=== PATIENT | male | born 1950 | race Caucasian/White ===

== ENCOUNTER 2018-03-28 07:58 | Emergency (ER) | payer OTHER ==
[2018-03-28 08:55] LABS: Protime INR 5.08
[2018-03-28] MEDS ORDERED: LEVALBUTEROL 1.25 MG/3 ML NEB ONE (08:55)
[2018-03-28 08:58] LABS: Absolute Lymphocytes (CBC) 0.5 K/uL (0.7-4.9); Absolute Monocytes 0.9 K/uL (0.1-1.3); Absolute Neutrophil 8.3 K/uL (1.8-8.0); Basophils % 0.2 % (0-1.3); Eosinophils % 1.4 % (0-4.4); Hematocrit 48.1 % (39.6-49.0); Lymphocytes % 5.2 % (15.3-44.8); MCH 30.6 pg (27.0-35.0); MCV 92.4 fL (80-100); MPV 9.8 fL (7.6-11.3); Monocytes % 8.8 % (3.3-12.3); RBC Red Blood Cell Count 5.21 M/uL (4.33-5.43)
[2018-03-28 08:59] LABS: ALT/SGPT 24 U/L (12-78); AST/SGOT 23 U/L (15-37); Albumin 3.7 g/dL (3.4-5.0); Alkaline Phosphatase 80 U/L (45-117); BUN Blood Urea Nitrogen 31 mg/dL (7-18); Bicarbonate 40 mmol/L (21-32); Bilirubin Direct 0.2 mg/dL (0-0.2); Bilirubin Total 0.6 mg/dL (0.2-1.0); Glucose Level 118 mg/dL (74-106); Magnesium 2.4 mg/dL (1.8-2.4); NT PRO-BNP 1635 pg/mL (<125); Potassium 3.8 mmol/L (3.5-5.1); Protein, Total 7.5 g/dL (6.4-8.2); Sodium Level 138 mmol/L (136-145); Troponin (Emerg Dept Use Only) < 0.02 ng/mL (0.0-0.045)
[2018-03-28 09:07] LABS: Urine Blood TRACE (NEG); Urine Glucose NEGATIVE (NEG); Urine Protein NEGATIVE (NEG); Urine Specific Gravity 1.015 (1.005-1.030)
--- NOTE | 2018-03-28 09:35 | RAD REPORT ---
EXAM DESCRIPTION: RAD - Foot Left 3 View - 03/28/2018 9:06 am CLINICAL HISTORY: Foot pain, no trauma history detailed COMPARISON: None. FINDINGS: No fracture, dislocation or periosteal reaction. No acute or destructive bony process. Michelle int space narrowing, sclerosis and spurring changes are present at the first MTP joint. No significan t IP joint degenerative changes are present. There is calcification along the plantar capsular margin second MTP joint. There is no spurring, joint space narrowing or erosive change at the second MTP michelle int. Patient has degenerative changes that is mild at the medial trapezium first metatarsal articulat ion. Large plantar spur. No air or foreign body in the soft tissues. IMPRESSION: Degenerative changes are present in the foot as detailed. No fracture or acute bone find ing. No destructive or pathologic process. Large plantar spur.
--- NOTE | 2018-03-28 09:35 | RAD REPORT ---
EXAM DESCRIPTION: RAD - Chest Single View - 03/28/2018 9:06 am CLINICAL HISTORY: Difficulty breathing, cough and congestion COMPARISON: February 2017 TECHNIQUE: AP portable chest image was obtained 0840 hour . FINDINGS: No peripheral mass or consolidation. Left pericardial fat pad is present. Left costophreni c angle blunting is present and unchanged. No acute failure or volume overload findings. Heart size i s normal. No vascular engorgement. No measurable pleural effusion and no pneumothorax. No acute bony abnormality seen. No acute aortic findings suspected. IMPRESSION: No acute cardiopulmonary process. Above detailed chest findings are similar or less prominent than seen 1 year earlier.
[2018-03-28] MEDS ORDERED: predniSONE 20 MG TAB ONE (10:03)
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
[2018-03-28 10:56] VITALS: TEMP 97.8
[2018-03-28 10:58] VITALS: BP 158/93; O2SAT 95
--- NOTE | 2018-03-29 06:54 | EKG ---
Test Date: 2018-03-28 Test Time: 09:29:22 [employer] General Manager: BENJA MEASUREMENT RESULTS: Intervals: Rate: 89 [place]: QRSD: 94 QT: 370 QTc: 450 [place]: P: [place]: QRS: 58 T: 63 INTERPRETIVE STATEMENTS: Atrial fibrillation Abnormal ECG Compared to ECG 03/17/2017 08:22:45 No significant changes Electronically Signed On 03-29-18 06:53:29 [employer] by Wan Rogel
== END 2018-03-28 10:15 | disposition home or self-care (01) ==
LOC: ER 07:58
DX: J44.9 Chronic obstructive pulmonary disease, unspecified (principal); I50.9 Heart failure, unspecified; I10 Essential (primary) hypertension; I48.91 Unspecified atrial fibrillation; E78.5 Hyperlipidemia, unspecified; Z79.01 Long term (current) use of anticoagulants; Z88.0 Allergy status to penicillin
CPT/HCPCS: 36415; 71045; 80048; 80076; 81003; 83735; 83880; 84484; 85025; 85610; 87804; 93005; 99285; J7512

== ENCOUNTER 2020-10-09 00:25 | Inpatient (IN) | payer OTHER ==
[2020-10-09 00:44] LABS: Arterial Blood Carboxyhemoglob 2.2 % (0-1.5); Blood Gas Oxyhemoglobin 95.4 % (94-97); Blood O2 Saturation 98.3 % (92-98.5)
[2020-10-09 01:03] LABS: Absolute Lymphocytes (CBC) 0.5 K/uL (0.7-4.9); Basophils % 0.3 % (0-1.3); Hematocrit 37.6 % (39.6-49.0); Lymphocytes % 3.7 % (15.3-44.8); MPV 9.1 fL (7.6-11.3); RBC Red Blood Cell Count 3.81 M/uL (4.33-5.43)
[2020-10-09 01:04] LABS: Protime INR 3.8
[2020-10-09 01:14] LABS: ALT/SGPT 22 U/L (12-78); AST/SGOT 21 U/L (15-37); Albumin 3.4 g/dL (3.4-5.0); Alkaline Phosphatase 72 U/L (45-117); BUN Blood Urea Nitrogen 15 mg/dL (7-18); Bicarbonate 35 mmol/L (21-32); Bilirubin Direct 0.5 mg/dL (0-0.2); Bilirubin Total 1.4 mg/dL (0.2-1.0); Glucose Level 131 mg/dL (74-106); Magnesium 2.3 mg/dL (1.8-2.4); NT PRO-BNP 5201 pg/mL (<125); Potassium 3.5 mmol/L (3.5-5.1); Protein, Total 7.7 g/dL (6.4-8.2); Sodium Level 142 mmol/L (136-145); Troponin (Emerg Dept Use Only) < 0.02 ng/mL (0.0-0.045)
[2020-10-09 02:02] LABS: Blood Morphology Comment NOT SEEN (NOT SEEN); Platelet Estimate ADEQ
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
[2020-10-09 05:30] VITALS: BMI 25.1
[2020-10-09] MEDS ORDERED: ACETAMINOPHEN 500 MG TAB PO PRN (05:37)
[2020-10-09] MEDS ORDERED: HYDRALAZINE HCL 20 MG/ML VIAL IV PRN (05:37)
[2020-10-09] MEDS ORDERED: BENZONATATE 100 MG CAP PO PRN (05:37)
[2020-10-09] MEDS ORDERED: PNEUMOCOCCAL VACCINE 0.5 ML IMVAC ONE ×2 (08:00→09:16)
[2020-10-09] MEDS: predniSONE 20 MG TAB PO SCH ×2 (08:03→20:19)
[2020-10-09] MEDS: levoFLOXacin 750 MG TAB PO SCH (08:08)
[2020-10-09] MEDS: ENOXAPARIN 40 MG/0.4 ML SQ SCH (08:08)
[2020-10-09] MEDS ORDERED: predniSONE 20 MG TAB ONE (08:19)
[2020-10-09] MEDS ORDERED: levoFLOXacin 500 MG TAB ONE (08:19)
[2020-10-09] MEDS ORDERED: ENOXAPARIN 40 MG/0.4 ML SQ ONE (08:20)
[2020-10-09] MEDS ORDERED: ALBUTEROL 2.5 MG/3 ML NEB SOL ONE ×2 (08:21→14:11)
[2020-10-09] MEDS ORDERED: IPRATROPIUM BROM 0.5MG/2.5ML ONE ×2 (08:21→14:11)
--- NOTE | 2020-10-09 08:22 | RAD REPORT ---
EXAM DESCRIPTION: RAD - Chest Single View - 10/09/2020 12:50 am CLINICAL HISTORY: COPD;Dyspnea COMPARISON: Portable March 2018 TECHNIQUE: AP portable chest image was obtained 10/09/2020 12:50 am . FINDINGS: No dense consolidations seen. There is some hazy ground-glass opacification indicating stella eolar infiltrate or edema. Interstitial thickening is present compared to the prior study. Heart size is upper normal, not substantially different from comparison. Left side pericardial fat pad is prese nt. Vasculature is increased slightly from comparison. No pneumothorax or large pleural effusion. Lef t costophrenic angle blunting is present from the affects of portable imaging and pericardial fat. A minimal effusion could be masked. No acute bony abnormality seen. No acute aortic findings suspected. IMPRESSION: Interstitial thickening and hazy ground-glass opacification compared to prior imaging. Unfortunately, pattern is nonspecific. Infectious and inflammatory etiologies can give this presentat ion. Interstitial and alveolar edema from cardiogenic or noncardiogenic etiologies also give a simila r presentation.
[2020-10-09] MEDS ORDERED: levoFLOXacin 750 MG TAB ONE (08:26)
[2020-10-09] MEDS: IPRATROPIUM BROM 0.5MG/2.5ML NEB SCH ×3 (08:33→19:40)
[2020-10-09] MEDS: ALBUTEROL 2.5 MG/3 ML NEB SOL NEB SCH ×3 (08:33→19:40)
--- NOTE | 2020-10-09 10:37 | RAD REPORT ---
EXAM DESCRIPTION: CT - Chest For Pe Angio - 10/09/2020 6:52 am CLINICAL HISTORY: The patient is 70 years old and is Male; DYSPNEA TECHNIQUE: Axial computed tomographic angiography images of the chest with intravenous contrast. S agittal and coronal reformatted images were created and reviewed. This CT exam was performed using one or more of the following dose reduction techniques: automated exposure control, adjustment of t he mA and/or kV according to patient size, and/or use of iterative reconstruction technique. MIP re constructed images were created and reviewed. COMPARISON: No relevant prior studies available. FINDINGS: Pulmonary arteries: The main pulmonary artery measures 32 mm in diameter which can be seen with pulmonary hypertension. No pulmonary embolism. Aorta: Scattered atherosclerotic vascular calcifications. No thoracic aortic aneurysm. Lungs: Diffuse groundglass opacification of the lungs bilaterally. Bibasilar atelectasis. Pleural space: There may be small bilateral pleural effusions. No pneumothorax. Heart: Unremarkable. No cardiomegaly. No significant pericardial effusion. No evidence of R V dysfunction. Mediastinum: There may be a small hiatal hernia. Bones/joints: Anterior bridging osteophytes in the spine. No acute fracture. No dislocation. Soft tissues: Unremarkable. Lymph nodes: There are scattered prominent appearing lymph nodes in the mediastinum. IMPRESSION: 1. Diffuse groundglass opacification of the lungs bilaterally. Findings can be seen with pulmonary edema as well as infectious or inflammatory etiologies. 2. There may be small bilateral pleural effusions. 3. There are scattered prominent appearing lymph nodes in the mediastinum. 4. No evidence of pulmonary embolism. Electronically signed by: Gigi Childress MD 10/09/2020 3:44 AM CDT Due to temporary technical issues with the PACS/Fluency reporting system, reports are being signed by the in house radiologists without review as a courtesy to insure prompt reporting. The interpreting radiologist is fully responsible for the content of the report.
--- NOTE | 2020-10-09 11:40 | EKG ---
Test Date: 2020-10-09 Test Time: 00:55:26 Transmitter Operator: JERAMY MEASUREMENT RESULTS: Intervals: Rate: 92 MT: QRSD: 120 QT: 376 QTc: 464 [place]: P: MT: QRS: 35 T: 47 INTERPRETIVE STATEMENTS: Atrial fibrillation with premature ventricular or aberrantly conducted complexes Right bundle branch block Abnormal ECG Compared to ECG 03/28/2018 09:29:22 Ventricular premature complex(es) now present Right bundle-branch block now present Electronically Signed On 10-09-20 11:39:22 CDT by Kenn Hinojosa
--- NOTE | 2020-10-09 11:40 | EKG ---
Test Date: 2020-10-09 Test Time: 03:02:40 Alarm Signaler: JERAMY MEASUREMENT RESULTS: Intervals: Rate: 99 [place]: QRSD: 106 QT: 368 QTc: 472 [place]: P: [place]: QRS: 15 T: 34 INTERPRETIVE STATEMENTS: Atrial fibrillation Incomplete right bundle branch block Anteroseptal infarct, age undetermined Abnormal ECG Compared to ECG 10/09/2020 00:55:26 Incomplete right bundle-branch block now present Myocardial infarct finding now present Ventricular premature complex(es) no longer present Right bundle-branch block no longer present Electronically Signed On 10-09-20 11:39:21 CDT by Kenn Hinojosa
--- NOTE | 2020-10-09 14:13 | P.CNS ---
Date of Consult: 10/09/20 Reason for Consult: COPD exacerbations Chief Complaint: copd exacerbation History of Present Illness: Patient is 70 years of age well known to me history of end-stage COPD admitted with worsening dyspnea came on rather suddenly he is doing much better now was placed on BiPAP back to his baseline patient is compliant with this therapy at home Patient is fully anti coagulated Allergies Penicillins Allergy (Verified 11/03/16 16:45) Itching Home Medications: Amlodipine [Norvasc*] 5 mg PO DAILY 10/02/14 Budesonide/Formoterol Fumarate [Symbicort 160-4.5 Mcg Inhaler] 1 puff IH BID 10/02/14 Lovastatin 20 mg PO DAILY 10/08/16 Carvedilol [Coreg] 25 mg PO BID #60 tablet 10/10/16 Warfarin Sodium [Coumadin*] 5 mg PO DAILY 5 PM 11/03/16 predniSONE [Deltasone*] 5 mg PO DAILY 11/03/16 Spironolactone [Aldactone*] 25 mg PO DAILY 30 Days #30 tab 10/10/20 - Past Medical/Surgical History Diabetic: No -: COPD -: History of AFib -: CHF -: HTN -: HYPERLIPIDEMIA -: R REPAIR TO LEG - Family History Father Medical History: Heart disease, Hypertension Notes: FROM [place] Mother Medical History: Lung disease Notes: COPD - Social History Smoking Status: Unknown if ever smoked Alcohol use: Yes CD- Drugs: No Caffeine use: Yes Place of Residence: Home Review of Systems General: Weakness Respiratory: Cough, Shortness of Breath Physical Examination Temp Pulse Resp BP Pulse Ox 98.9 F 98 H 19 114/70 98 10/09/20 12:00 10/09/20 12:00 10/09/20 12:00 10/09/20 12:00 10/09/20 12:00 General: Alert, Oriented x3 Respiratory: Expiratory wheezes Cardiovascular: No edema, Regular rate/rhythm Gastrointestinal: Normal bowel sounds, Soft and benign Laboratory Data (last 24 hrs) 10/09/20 00:35: PT 44.3 H, INR 3.80 10/09/20 00:35: WBC 12.70 H, Hgb 11.9 L, Hct 37.6 L, Plt Count 176 10/09/20 00:35: Sodium 142, Potassium 3.5, BUN 15, Creatinine 0.99, Glucose 131 H, Magnesium 2.3, Total Bilirubin 1.4 H, AST 21, ALT 22, Alkaline Phosphatase 72 - Problems (1) COPD exacerbation Onset Date: 10/03/14 Current Visit: No Status: Acute Plan: Patient is 70 years of age admitted with COPD exacerbation he is doing much better recommend discharge home on prednisone 20 b.i.d. for a week and then [address] scan shows severe COPD changes labs reviewed mildly elevated white count last echocardiogram shows normal left ventricular function patient's INR is therapeutic Dc levofloxacin as E can increase the level of his INR patient appears to have low potassium exchange engineer to spironolactone instead of Lasix he has home oxygen stable for discharge
--- NOTE | 2020-10-09 17:46 | P.PN ---
Date of Service: 10/09/20 Patient seen and examined. He reports feeling better. He is maintained on 3 L oxygen by nasal canula. No fever. Plan: Pulmonary input appreciated. Continue scheduled nebs, Levaquin and prednisone. Wean oxygen to baseline 2 liters/minute by nasal cannula. Possible discharge in a.m.
[2020-10-09] MEDS ORDERED: WARFARIN SODIUM 5 MG TAB PO SCH (18:49)
[2020-10-09] MEDS ORDERED: POTASSIUM CL SA 10 MEQ TAB PO ONE (19:03)
[2020-10-09] MEDS: ATORVASTATIN 10 MG TAB PO SCH (20:18)
[2020-10-09] MEDS: carvediloL 25 MG TAB PO SCH (20:18)
[2020-10-09] MEDS: Budesonide/Formoterol Fumarate [Symbicort 160-4.5 Mcg Inhaler] 10.2 GM IH SCH (20:19)
[2020-10-10] MEDS: ALBUTEROL 2.5 MG/3 ML NEB SOL NEB SCH ×4 (01:40→19:40)
[2020-10-10] MEDS: IPRATROPIUM BROM 0.5MG/2.5ML NEB SCH ×4 (01:40→19:40)
[2020-10-10 05:58] LABS: Absolute Lymphocytes (CBC) 0.2 K/uL (0.7-4.9); Basophils % 0.1 % (0-1.3); Hematocrit 31.2 % (39.6-49.0); Lymphocytes % 1.6 % (15.3-44.8); MPV 8.8 fL (7.6-11.3)
[2020-10-10 06:03] LABS: Protime INR 2.69
[2020-10-10 06:18] LABS: Albumin 2.7 g/dL (3.4-5.0); Bilirubin Total 0.6 mg/dL (0.2-1.0); Magnesium 2.4 mg/dL (1.8-2.4); Potassium 3.7 mmol/L (3.5-5.1); Protein, Total 6.1 g/dL (6.4-8.2)
[2020-10-10] MEDS: levoFLOXacin 750 MG TAB PO SCH (08:01)
[2020-10-10] MEDS: AMLODIPINE 5 MG TAB PO SCH (08:01)
[2020-10-10] MEDS: ENSURE ENLIVE 237 ML CAN PO SCH ×2 (08:02→20:02)
[2020-10-10] MEDS: predniSONE 20 MG TAB PO SCH (08:02)
[2020-10-10] MEDS: carvediloL 25 MG TAB PO SCH ×2 (08:02→20:01)
[2020-10-10] MEDS: ENOXAPARIN 40 MG/0.4 ML SQ SCH (08:03)
[2020-10-10] MEDS: Budesonide/Formoterol Fumarate [Symbicort 160-4.5 Mcg Inhaler] 10.2 GM IH SCH ×2 (09:00→20:02)
[2020-10-10] MEDS ORDERED: FUROSEMIDE 40 MG TABLET PO SCH (09:00)
[2020-10-10] MEDS ORDERED: POTASSIUM PHOS IN 0.9 % NACL 15 MMOL/250 ML BAG IV ONE (09:00)
--- NOTE | 2020-10-10 15:27 | P.DS ---
Admission Date: 10/09/20 Discharge Date: 10/11/20 Disposition: ROUTINE DISCHARGE Discharge Condition: FAIR Reason for Admission: copd exacerbation Consultations: Pulmonary-Dr. Lay - Problems (1) COPD exacerbation Onset Date: 10/03/14 Current Visit: No Status: Acute (2) Anxiety Onset Date: 11/04/16 Current Visit: No Status: Chronic (3) HTN (hypertension) Onset Date: 11/04/16 Current Visit: No Status: Chronic Qualifiers: Hypertension type: essential hypertension Qualified Code(s): I10 - Essential (primary) hypertension (4) Chronic respiratory failure with hypoxia Current Visit: Yes Status: Acute (5) Chronic atrial fibrillation Current Visit: Yes Status: Acute (6) Chronic anticoagulation Current Visit: Yes Status: Acute Brief History of Present Illness: 70-year-old gentleman with a history of COPD on 2 L of home oxygen, congestive heart failure, hypertension, atrial fibrillation presented to the emergency department with a complaint of acute onset shortness of breath. Patient was noted to be tachypneic and hypertensive. He was placed on BiPAP en route to the emergency department. His respiratory condition improved by the time he arrived in the ED. He was placed on oxygen by nasal cannula and given breathing treatments. Patient was admitted for further management. Hospital Course: Patient admitted to the medical floor and treated for COPD exacerbation with IV steroids and scheduled bronchodilators. He was seen in consultation by pulmonary-Dr. Lay. His clinical condition gradually got better, he tolerated his baseline oxygen. Patient reported feeling much better today. Spouse reports patient has limited functional capacity at baseline. He was able to at least ambulate to and from bathroom without dyspnea. Patient has clinically improved and deemed stable for discharge. He will follow with Dr. Lay as an outpatient. Vital Signs/Physical Exam: Temp Pulse Resp BP Pulse Ox 97.8 F 87 16 131/58 L 94 10/10/20 12:00 10/10/20 12:00 10/10/20 12:00 10/10/20 12:00 10/10/20 12:00 General: Alert, In no apparent distress, Oriented x3 Neck: JVD not distended Respiratory: Clear to auscultation bilaterally, Normal air movement Cardiovascular: No edema, Regular rate/rhythm, Normal S1 S2 Gastrointestinal: Soft and benign, Non-distended, No tenderness Musculoskeletal: No swelling, No tenderness Integumentary: No rashes, No erythema Neurological: Normal strength at 5/5 x4 extr Laboratory Data at Discharge: WBC 11.50 K/uL (4.3-10.9) H 10/10/20 05:26 Hgb 10.1 g/dL (13.6-17.9) L 10/10/20 05:26 Hct 31.2 % (39.6-49.0) L D 10/10/20 05:26 Plt Count 152 K/uL (152-406) 10/10/20 05:26 PT 31.3 SECONDS (9.5-12.5) H 10/10/20 05:26 INR 2.69 10/10/20 05:26 Sodium 140 mmol/L (136-145) 10/10/20 05:26 Potassium 3.7 mmol/L (3.5-5.1) 10/10/20 05:26 BUN 29 mg/dL (7-18) H 10/10/20 05:26 Creatinine 1.14 mg/dL (0.55-1.3) 10/10/20 05:26 Glucose 171 mg/dL (74-106) H 10/10/20 05:26 Phosphorus 2.0 mg/dL (2.5-4.9) L 10/10/20 05:26 Magnesium 2.4 mg/dL (1.8-2.4) 10/10/20 05:26 Total Bilirubin 0.6 mg/dL (0.2-1.0) 10/10/20 05:26 AST 13 U/L (15-37) L 10/10/20 05:26 ALT 18 U/L (12-78) 10/10/20 05:26 Alkaline Phosphatase 53 U/L (45-117) 10/10/20 05:26 Triglycerides 53 mg/dL (<150) 10/10/20 05:26 Cholesterol 156 mg/dL (<200) 10/10/20 05:26 HDL Cholesterol 65 mg/dL (40-60) H 10/10/20 05:26 Cholesterol/HDL Ratio 2.40 10/10/20 05:26 Home Medications: Amlodipine [Norvasc*] 5 mg PO DAILY 10/02/14 Budesonide/Formoterol Fumarate [Symbicort 160-4.5 Mcg Inhaler] 1 puff IH BID Lovastatin 20 mg PO DAILY 10/08/16 Carvedilol [Coreg] 25 mg PO BID #60 tablet 10/10/16 Warfarin Sodium [Coumadin*] 5 mg PO DAILY 5 PM 11/03/16 Albuterol Neb [Proventil 0.083% Neb Soln] 2.5 mg NEB [id number] PRN #120 amp 10/10/20 Benzonatate [Tessalon Perle*] 100 mg PO TID PRN #30 cap 10/10/20 Ensure Enlive 237 ml PO BID #60 can 10/10/20 Nebulizer [Aeroneb Go Nebulizer] 1 each QID #1 each 10/10/20 Spironolactone [Aldactone*] 25 mg PO DAILY 30 Days #30 tab 10/10/20 predniSONE [Deltasone] 20 mg PO BID #90 tab 10/10/20 New Medications: Albuterol Neb [Proventil 0.083% Neb Soln] 2.5 mg NEB [id number] PRN #120 amp PRN Reason: Shortness Of Breath Nebulizer [Aeroneb Go Nebulizer] 1 each QID #1 each Spironolactone [Aldactone*] 25 mg PO DAILY 30 Days #30 tab Ensure Enlive 237 ml PO BID #60 can predniSONE [Deltasone] 20 mg PO BID #90 tab Benzonatate [Tessalon Perle*] 100 mg PO TID PRN #30 cap PRN Reason: Cough Diet: AHA Activity: Ad grace Followup: Mian Lay MD [Primary Care Provider] - 1-2 Weeks Time spent managing pt's care (in minutes): 33
--- NOTE | 2020-10-10 18:44 | P.PN ---
Subjective Date of Service: 10/10/20 Chief Complaint: copd exacerbation Patient reporting feeling better but not yet back to baseline. He also reports anxiety. Physical Examination - Vital Signs Temperature: 98.0 F Blood Pressure: 133/60 Pulse: 85 Respirations: 16 Pulse Ox (%): 98 - Physical Exam General: Alert, In no apparent distress, Oriented x3, Other (Anxious) HEENT: Mucous membr. moist/pink Neck: JVD not distended Respiratory: Diminished (Bilateral), Other (Mild scattered rhonchi) Cardiovascular: No edema, Regular rate/rhythm, Normal S1 S2 Gastrointestinal: Normal bowel sounds, Soft and benign, Non-distended, No tenderness Musculoskeletal: No swelling, No tenderness Integumentary: No rashes, No erythema Neurological: Normal speech, Normal strength at 5/5 x4 extr Assessment And Plan - Current Problems (Diagnosis) (1) COPD exacerbation Onset Date: 10/03/14 Current Visit: No Status: Acute (2) Anxiety Onset Date: 11/04/16 Current Visit: No Status: Chronic (3) HTN (hypertension) Onset Date: 11/04/16 Current Visit: No Status: Chronic Qualifiers: Hypertension type: essential hypertension Qualified Code(s): I10 - Ess ential (primary) hypertension (4) Chronic respiratory failure with hypoxia Current Visit: Yes Status: Acute (5) Chronic atrial fibrillation Current Visit: Yes Status: Acute (6) Chronic anticoagulation Current Visit: Yes Status: Acute - Plan Continue scheduled bronchodilators and IV steroid. Titrate oxygen. Low dose Ativan p.r.n. for anxiety. Pulmonary input appreciated. Continue Coumadin. Monitor PT and INR. Continue Coreg for afib. PT to evaluate functional performance status.
[2020-10-10] MEDS: ATORVASTATIN 10 MG TAB PO SCH (20:01)
[2020-10-10] MEDS: LORazepam 2 MG/ML VIAL IV PRN (20:01)
[2020-10-10] MEDS: METHYLPREDNISOLONE 40 MG INJ IV SCH ×2 (20:02→23:51)
[2020-10-11] MEDS: ALBUTEROL 2.5 MG/3 ML NEB SOL NEB SCH ×3 (02:20→14:33)
[2020-10-11] MEDS: IPRATROPIUM BROM 0.5MG/2.5ML NEB SCH ×3 (02:20→14:33)
[2020-10-11 04:02] LABS: Absolute Lymphocytes (CBC) 0.1 K/uL (0.7-4.9); Hematocrit 30.5 % (39.6-49.0); Lymphocytes % 1.3 % (15.3-44.8); MPV 8.9 fL (7.6-11.3); RBC Red Blood Cell Count 3.13 M/uL (4.33-5.43)
[2020-10-11 04:35] LABS: Phosphorus 3.4 mg/dL (2.5-4.9); Potassium 4.1 mmol/L (3.5-5.1)
[2020-10-11] MEDS: METHYLPREDNISOLONE 40 MG INJ IV SCH ×2 (05:04→12:25)
[2020-10-11] MEDS: ENSURE ENLIVE 237 ML CAN PO SCH (09:00)
[2020-10-11] MEDS: Budesonide/Formoterol Fumarate [Symbicort 160-4.5 Mcg Inhaler] 10.2 GM IH SCH (09:00)
[2020-10-11] MEDS: ENOXAPARIN 40 MG/0.4 ML SQ SCH (09:00)
[2020-10-11] MEDS: AMLODIPINE 5 MG TAB PO SCH (09:54)
[2020-10-11] MEDS: carvediloL 25 MG TAB PO SCH (09:55)
[2020-10-11 15:58] VITALS: BP 136/68; TEMP 97.7
[2020-10-11] MEDS: LORazepam 2 MG/ML VIAL IV PRN (16:00)
[2020-10-11 16:29] VITALS: O2SAT 96
== END 2020-10-11 16:10 | disposition home or self-care (01) | DRG 191 ==
LOC: ER 00:25 → ERHOLD 05:13 → 4TH 14:45
PROVIDERS: ADMIT Internal Medicine; ATTEND Internal Medicine
PROC: 5A09457 Assistance with Respiratory Ventilation, 24-96 Consecutive Hours, Continuous Positive Airway Pressure (ICD-10-PCS; principal; 2020-10-09)
DX: J44.1 Chronic obstructive pulmonary disease with (acute) exacerbation (principal); I50.32 Chronic diastolic (congestive) heart failure; J96.11 Chronic respiratory failure with hypoxia; I11.0 Hypertensive heart disease with heart failure; I48.0 Paroxysmal atrial fibrillation; E78.2 Mixed hyperlipidemia; F41.9 Anxiety disorder, unspecified; Z99.81 Dependence on supplemental oxygen; Z79.01 Long term (current) use of anticoagulants; Z79.52 Long term (current) use of systemic steroids; Z88.0 Allergy status to penicillin; Z79.899 Other long term (current) drug therapy; Z87.891 Personal history of nicotine dependence; Z20.822 Contact with and (suspected) exposure to COVID-19; Z23 Encounter for immunization
CPT/HCPCS: 36415; 71045; 71275; 80048; 80053; 80061; 80076; 82805; 83036; 83605; 83735; 83880; 84100; 84484; 85025; 85379; 85610; 87040; 90471; 90732; 93005; 94660; 94760; 97161; 99291; 99292; J1650; J2920; J7512; Q9967; U0003

== ENCOUNTER 2020-10-27 09:43 | Emergency (ER) | payer OTHER ==
[2020-10-27 11:01] LABS: Absolute Lymphocytes (CBC) 0.6 K/uL (0.7-4.9); Basophils % 0.5 % (0-1.3); Hematocrit 39.7 % (39.6-49.0); Lymphocytes % 6.9 % (15.3-44.8); MPV 8.5 fL (7.6-11.3); RBC Red Blood Cell Count 4.08 M/uL (4.33-5.43)
[2020-10-27 11:20] LABS: ALT/SGPT 38 U/L (12-78); AST/SGOT 29 U/L (15-37); Albumin 3.2 g/dL (3.4-5.0); Alkaline Phosphatase 82 U/L (45-117); BUN Blood Urea Nitrogen 16 mg/dL (7-18); Bicarbonate 33 mmol/L (21-32); Bilirubin Direct 0.1 mg/dL (0-0.2); Bilirubin Total 0.3 mg/dL (0.2-1.0); Glucose Level 91 mg/dL (74-106); Magnesium 2.3 mg/dL (1.8-2.4); NT PRO-BNP 2423 pg/mL (<125); Sodium Level 143 mmol/L (136-145); Troponin (Emerg Dept Use Only) < 0.02 ng/mL (0.0-0.045)
[2020-10-27 11:31] LABS: Urine Blood 1+ (Negative); Urine Glucose Negative (Negative); Urine Protein Negative (Negative); Urine pH 5.5 (5.0-7.0)
[2020-10-27] MEDS ORDERED: NA CHLORIDE 0.9% 1,000 ML ONE (11:36)
[2020-10-27] MEDS ORDERED: TETANUS & DIPHTHERIA TOX,ADULT 0.5 ML VIAL ONE (11:36)
--- NOTE | 2020-10-27 12:01 | RAD REPORT ---
EXAM DESCRIPTION: CT - Head C Spine Kurtis Olson - 10/27/2020 11:38 am CLINICAL HISTORY: Trauma, head and neck injury. Chest, abdomen and pelvis pain. PAIN COMPARISON: No comparisons TECHNIQUE: CT head without contrast. CT cervical spine without contrast with coronal and sagittal reformatted images. CT chest, abdomen and pelvis with IV contrast (approximately 100 mL nonionic IV contrast) with galvan l and sagittal reformatted images of the spine. All CT scans are performed using dose optimization technique as appropriate and may include automated exposure control or mA/KV adjustment according to patient size. FINDINGS: CT HEAD WITHOUT CONTRAST: No intracranial hemorrhage, hydrocephalus or extra-axial fluid collection. No areas of brain edema o r midline shift. The right maxillary antrum is opacified with high density material. This is presumably related to chr onic sinusitis. The calvarium is intact. Moderate left periorbital soft tissue swelling. No evidence of left-sided face fracture. CT CERVICAL SPINE WITHOUT CONTRAST: No fracture or subluxation. Mild midcervical degenerative. The prevertebral soft tissues are normal i n thickness. CT CHEST, ABDOMEN, PELVIS WITH CONTRAST: Mild diffuse COPD is present.Linear opacity in left lung base probably represents atelectasis scarrin g.No pneumothorax or pericardial/pleural fluid. No evidence of intra-abdominal visceral injury, free fluid or free air. Right renal atrophy small non obstructing right renal calculus. Solid-appearing low-density 23 x 14 mm mass is present uncinate process of pancreas. No acute fracture is visualized. IMPRESSION: Negative for acute traumatic findings. Left periorbital soft tissue swelling. 23 mm hypodense mass in the uncinate process of the pancreas noted. Recommend follow-up MRI of the ab domen with contrast on a nonemergent basis for followup assessment.
--- NOTE | 2020-10-27 12:07 | RAD REPORT ---
EXAM DESCRIPTION: RAD - Chest Single View - 10/27/2020 11:43 am CLINICAL HISTORY: BLUNT CHEST TRAUMA Chest pain. COMPARISON: Chest Single View dated 10/09/2020; Chest Single View dated 03/28/2018; Chest Single View dated 03/17/2017; Chest Single View dated 11/03/2016 FINDINGS: Portable technique limits examination quality. The lungs are grossly clear. The heart is mildly prominent in size. No displaced fractures. IMPRESSION: No acute intrathoracic process suspected.
--- NOTE | 2020-10-27 12:11 | ER ---
Nurse's Notes [facility] Name: Chandler Stark Age: 70 yrs Sex: Male : 1950 Arrival Date: 10/27/2020 Time: 09:51 Bed 2 Private MD: Diagnosis: Fall (on) (from) unspecified stairs and steps;Superficial injury of head-left periorbital injury/ left subconjunctival hemorrhage;Laceration without foreign body of left forearm-skin tear;Abnormal findings on diagnostic imaging of liver and biliary tract-solid 23 mm x 14 mm mass in the Uncinate process Presentation: 10/27 09:53 Chief complaint: Patient states: Pt fell at home at approximately 0700 and hit his kg head. Pt is on blood thinners, denies LOC. Pt stated he doesn't know why he fell. Coronavirus screen: Client denies travel out of the [place] in the last 14 days. Ebola Screen: Patient negative for fever greater than or equal to 101.5 degrees Fahrenheit, and additional compatible Ebola Virus Disease symptoms Patient denies exposure to infectious person. Patient denies travel to an Ebola-affected area in the 21 days before illness onset. Initial Sepsis Screen: Does the patient meet any 2 criteria? No. Patient's initial sepsis screen is negative. Does the patient have a suspected source of infection? No. Patient's initial sepsis screen is negative. Risk Assessment: Do you want to hurt yourself or someone else? Patient reports no desire to harm self or others. Onset of symptoms was October 27, 2020 at 07:00. 09:53 Method Of Arrival: EMS: [facility] kg 09:53 Acuity: [facility] 3 kg Historical: - Allergies: 12:48 PENICILLINS; kg - PMHx: 12:48 Atrial Fib; COPD; CHF; Hyperlipidemia; Hypertension; kg - Immunization history:: Adult Immunizations up to date. - Family history:: not pertinent. - Social history:: Smoking status: Patient denies any tobacco usage or history of. Screenin:56 Abuse screen: Denies threats or abuse. Denies injuries from another. Nutritional kg screening: No deficits noted. Tuberculosis screening: No symptoms or risk factors identified. Fall Risk Fall in past 12 months (25 points). No secondary diagnosis (0 pts). IV access (20 points). Ambulatory Aid- None/Bed Rest/Nurse Assist (0 pts). Gait- Weak (10 pts.). Mental Status- Oriented to own ability (0 pts). Total Sanders Fall Scale indicates High Risk Score (45 or more points). Fall prevention measures have been instituted. Side Rails Up X 2 Placed Close to Nursing Station Frequent Obs/Assessments Occuring As available patient and family educated on Fall Prevention Program and Strategies. Assessment: 10:23 General: Appears in no apparent distress. Behavior is calm, cooperative, appropriate kg for age, quiet. Pain: Denies pain. Neuro: Level of Consciousness is awake, alert, obeys commands, Oriented to person, place, time, situation. Cardiovascular: No deficits noted. Heart tones S1 S2 Capillary refill < 3 seconds. Respiratory: No deficits noted. Airway is patent Respiratory effort is even, unlabored, relaxed, Respiratory pattern is regular, symmetrical. GI: No deficits noted. : No deficits noted. EENT: No deficits noted. Derm: Skin is fragile, is thin, has skin tears on Left forearm Bruising that is dark purple, on left ear, left cheek, left eye and left synagogue. 11:30 Reassessment: Patient appears in no apparent distress at this time. Patient and/or hb family updated on plan of care and expected duration. Pain level reassessed. Patient is alert, oriented x 3, equal unlabored respirations, skin warm/dry/pink. 12:30 Reassessment: Patient appears in no apparent distress at this time. Patient and/or hb family updated on plan of care and expected duration. Pain level reassessed. Patient is alert, oriented x 3, equal unlabored respirations, skin warm/dry/pink. Vital Signs: 09:53 BP 170 / 76; Pulse 97; Resp 20; Pulse Ox 98% 3 lpm ; Weight 79.38 kg (R); Height 5 ft. kg 10 in. (177.80 cm) (R); Pain 0/10; 10:45 BP 162 / 83; Pulse 83; Resp 23; Pulse Ox 98% on 3 lpm NC; hb 11:30 BP 112 / 97; Pulse 78; Resp 22; Pulse Ox 100% on 3 lpm NC; hb 12:30 BP 161 / 83; Pulse 89; Resp 21; Pulse Ox 98% on 3 lpm NC; hb 09:53 Body Mass Index 25.11 (79.38 kg, 177.80 cm) kg Tushar Coma Score: 10:47 Eye Response: spontaneous(4). Verbal Response: oriented(5). Motor Response: obeys kylah commands(6). Total: 15. 10:55 Eye Response: spontaneous(4). Verbal Response: oriented(5). Motor Response: obeys kylah commands(6). Total: 15. ED Course: 09:51 Patient arrived in ED. hb 09:51 Fernanda Guzmán is Primary Nurse. kg 09:52 Jose Guadalupe Velasco MD is Attending Physician. kylah 09:55 Triage completed. kg 10:25 Arm band placed on. kg 10:26 Patient has correct armband on for positive identification. Allergy band placed. Bed in kg low position. Call light in reach. Side rails up X2. 11:38 CT Traumagram (Head C Spine CAP W Con) In Process Unspecified. EDMS 11:43 XRAY Chest (1 view) In Process Unspecified. EDMS 12:09 Tony Felix MD is Referral Physician. kylah 12:11 Devon Calvin MD is Referral Physician. kylah 12:48 No provider procedures requiring assistance completed. IV discontinued, intact, kg bleeding controlled, No redness/swelling at site. Pressure dressing applied. 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 Exp: kg 10/28/2021. Lot #: [id number]. } Route: IM; Site: left deltoid; 13:12 Follow up: Response: No adverse reaction kg 11:23 Drug: NS 0.9% 1000 ml Route: IV; Rate: 125 ml/hr; Site: right antecubital; kg 13:12 Follow up: Response: No adverse reaction kg Outcome: 12:11 Discharge ordered by . kylah 12:48 Discharged to home ambulatory, with family. kg 12:48 Condition: stable 12:48 Discharge instructions given to patient, family, significant other, Instructed on discharge instructions, follow up and referral plans. Demonstrated understanding of 13:11 Prescriptions given X 1. kg 13:47 Patient left the ED. hb Signatures: Dispatcher [employer] EDJose Guadalupe Mendoza MD MD cha Baxter, Heather, RN RN hb Fernanda Guzmán RN RN kg Corrections: (The following items were deleted from the chart) 13:14 11:30 BP 112 / 97; Pulse 78bpm; Resp 22bpm; Pulse Ox 100% RA; hb hb 13:14 12:30 BP 161 / 83; Pulse 89bpm; Resp 21bpm; Pulse Ox 98% RA; hb hb 13:14 10:45 BP 162 / 83; Pulse 83bpm; Resp 23bpm; Pulse Ox 98% RA; hb hb
--- NOTE | 2020-10-27 12:11 | EDPHYS ---
Physician Documentation [facility] Name: Chandler Stark Age: 70 yrs Sex: Male : 1950 Arrival Date: 10/27/2020 Time: 09:51 Bed 2 Private MD: ED Physician Jose Guadalupe Velasco HPI: 10/27 10:47 This 70 yrs old Male presents to ER via EMS with complaints of fall, hit face kylah and left arm, no memory, on blood thinners. 10:47 The patient or guardian reports injury, pain, swelling, tenderness. The complaints kylah affect the forehead and left eye. Context of injury: The problem was sustained at home, resulted from a fall. Onset: The symptoms/episode began/occurred just prior to arrival. Associated signs and symptoms: The patient has no apparent associated signs or symptoms, Loss of consciousness: This patient experience a loss of consciousness, for an unknown period of time. fall, unknown as to why, now back to normal. Details of fall: The patient fell from a height, wheelchair. Associated injuries: The patient sustained injury to the head, left arm, contusion, decreased range of motion. Severity of symptoms: At their worst the symptoms were mild, moderate, in the emergency department the symptoms have improved, moderately. Historical: - Allergies: 12:48 PENICILLINS; kg - PMHx: 12:48 Atrial Fib; COPD; CHF; Hyperlipidemia; Hypertension; kg - Immunization history:: Adult Immunizations up to date. - Family history:: not pertinent. - Social history:: Smoking status: Patient denies any tobacco usage or history of. ROS: 10:47 Constitutional: Negative for fever, chills, and weight loss, ENT: Negative for injury, kylah pain, and discharge, Neck: Negative for injury, pain, and swelling, Cardiovascular: Negative for chest pain, palpitations, and edema, Respiratory: Negative for shortness of breath, cough, wheezing, and pleuritic chest pain, Abdomen/GI: Negative for abdominal pain, nausea, vomiting, diarrhea, and constipation, Back: Negative for injury and pain, : Negative for injury, bleeding, discharge, and swelling, MS/Extremity: Negative for injury and deformity, Skin: Negative for injury, rash, and discoloration, Neuro: Negative for headache, weakness, numbness, tingling, and seizure, Psych: Negative for depression, anxiety, suicide ideation, homicidal ideation, and hallucinations, Allergy/Immunology: Negative for hives, rash, and allergies, Endocrine: Negative for neck swelling, polydipsia, polyuria, polyphagia, and marked weight changes, Hematologic/Lymphatic: Negative for swollen nodes, abnormal bleeding, and unusual bruising. 10:47 Eyes: Positive for pain, redness, swelling, of the left upper eyelid, outer aspect of conjuctiva of left eye, left inner canthus and left lower eyelid, left subconjunctival hemorrhage. Exam: 10:47 Constitutional: This is a well developed, well nourished patient who is awake, alert, kylah and in no acute distress. Eyes: Pupils equal round and reactive to light, extra-ocular motions intact. Lids and lashes normal. Conjunctiva and sclera are non-icteric and not injected. Cornea within normal limits. Periorbital areas with no swelling, redness, or edema. ENT: Nares patent. No nasal discharge, no septal abnormalities noted. Tympanic membranes are normal and external auditory canals are clear. Oropharynx with no redness, swelling, or masses, exudates, or evidence of obstruction, uvula midline. Mucous membranes moist. Neck: Trachea midline, no thyromegaly or masses palpated, and no cervical lymphadenopathy. Supple, full range of motion without nuchal rigidity, or vertebral point tenderness. No Meningismus. Chest/axilla: Normal chest wall appearance and motion. Nontender with no deformity. No lesions are appreciated. Cardiovascular: Regular rate and rhythm with a normal S1 and S2. No gallops, murmurs, or rubs. Normal PMI, no JVD. No pulse deficits. Respiratory: Lungs have equal breath sounds bilaterally, clear to auscultation and percussion. No rales, rhonchi or wheezes noted. No increased work of breathing, no retractions or nasal flaring. Abdomen/GI: Soft, non-tender, with normal bowel sounds. No distension or tympany. No guarding or rebound. No evidence of tenderness throughout. Back: No spinal tenderness. No costovertebral tenderness. Full range of motion. Male : Normal genitalia with no discharge or lesions. Skin: Warm, dry with normal turgor. Normal color with no rashes, no lesions, and no evidence of cellulitis. MS/ Extremity: Pulses equal, no cyanosis. Neurovascular intact. Full, normal range of motion. Neuro: Awake and alert, GCS 15, oriented to person, place, time, and situation. Cranial nerves II-XII grossly intact. Motor strength 5/5 in all extremities. Sensory grossly intact. Cerebellar exam normal. Normal gait. Psych: Awake, alert, with orientation to person, place and time. Behavior, mood, and affect are within normal limits. 10:47 Head/face: Noted is ecchymosis, hematoma, swelling, that is mild, of the left eye. 10:57 ECG was reviewed by the Attending Physician. kylah Vital Signs: 09:53 BP 170 / 76; Pulse 97; Resp 20; Pulse Ox 98% 3 lpm ; Weight 79.38 kg (R); Height 5 ft. kg 10 in. (177.80 cm) (R); Pain 0/10; 10:45 BP 162 / 83; Pulse 83; Resp 23; Pulse Ox 98% on 3 lpm NC; hb 11:30 BP 112 / 97; Pulse 78; Resp 22; Pulse Ox 100% on 3 lpm NC; hb 12:30 BP 161 / 83; Pulse 89; Resp 21; Pulse Ox 98% on 3 lpm NC; hb 09:53 Body Mass Index 25.11 (79.38 kg, 177.80 cm) kg Helix Coma Score: 10:47 Eye Response: spontaneous(4). Verbal Response: oriented(5). Motor Response: obeys kylah commands(6). Total: 15. 10:55 Eye Response: spontaneous(4). Verbal Response: oriented(5). Motor Response: obeys kylah commands(6). Total: 15. MDM: 09:52 Patient medically screened. kylah 10:55 Differential diagnosis: Contusion of Hematoma on head, face, Laceration of Intracranial kylah bleed- Concussion cerebral contusion. Differential Diagnosis altered mental status. Differential diagnosis: abrasion, closed head injury, contusion, fracture, laceration, multiple trauma, sprain, strain. Data reviewed: vital signs, nurses notes, lab test result(s), EKG, radiologic studies, CT scan, plain films. Data interpreted: compliance monitor: rate is 82 beats/min, rhythm is regular. Test interpretation: by ED physician or midlevel provider: ECG, plain radiologic studies. Counseling: I had a detailed discussion with the patient and/or guardian regarding: the historical points, exam findings, and any diagnostic results supporting the discharge/admit diagnosis, lab results, radiology results. 10/27 10:42 Order name: Basic Metabolic Panel; Complete Time: 11:59 [facility] 10/27 10:42 Order name: CBC with Diff; Complete Time: 11:59 [facility] 10/27 10:42 Order name: LFT's; Complete Time: 11:59 [facility] 10/27 10:42 Order name: Magnesium; Complete Time: 11:59 [facility] 10/27 10:42 Order name: NT PRO-BNP; Complete Time: 11:59 [facility] 10/27 10:42 Order name: PT-INR; Complete Time: 11:59 [facility] 10/27 10:42 Order name: Troponin (emerg Dept Use Only); Complete Time: 11:59 [facility] 10/27 10:42 Order name: XRAY Chest (1 view) [facility] 10/27 10:42 Order name: EKG; Complete Time: 10:43 [facility] 10/27 10:42 Order name: CT Traumagram (Head C Spine CAP W Con) [facility] 10/27 11:30 Order name: Urine Dipstick-Ancillary; Complete Time: 11:59 [facility] 10/27 10:42 Order name: Cardiac monitoring; Complete Time: 10:53 [facility] 10/27 10:42 Order name: EKG - Nurse/Tech; Complete Time: 10:53 [facility] 10/27 10:42 Order name: IV Saline Lock; Complete Time: 10:53 [facility] 10/27 10:42 Order name: Labs collected and sent; Complete Time: 10:53 [facility] 10/27 10:42 Order name: O2 Per Protocol; Complete Time: 10:53 [facility] 10/27 10:42 Order name: O2 Sat Monitoring; Complete Time: 10:53 [facility] 10/27 10:42 Order name: Ice pack; Complete Time: 10:53 [facility] 10/27 10:42 Order name: Urine Dipstick-Ancillary (obtain specimen); Complete Time: 10:53 [facility] 10/27 10:42 Order name: Wound Care; Complete Time: 10:53 [facility] EC:57 Rate is 82 beats/min. Rhythm is regular. QRS [place] is Normal. SC interval is normal. QRS kylah interval is normal. QT interval is normal. No Q waves. T waves are Normal. No ST changes noted. Clinical impression: Abnormal EKG without significant change and No evidence of ischemia. Interpreted by me. Reviewed by me. 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 Exp: kg 10/28/2021. Lot #: [id number]. } Route: IM; Site: left deltoid; 13:12 Follow up: Response: No adverse reaction kg 11:23 Drug: NS 0.9% 1000 ml Route: IV; Rate: 125 ml/hr; Site: right antecubital; kg 13:12 Follow up: Response: No adverse reaction kg Disposition: 10/27/20 12:11 Discharged to Home. Impression: Fall (on) (from) unspecified stairs and steps, Superficial injury of head - left periorbital injury/ left subconjunctival hemorrhage, Laceration without foreign body of left forearm - skin tear, Abnormal findings on diagnostic imaging of liver and biliary tract - solid 23 mm x 14 mm mass in the Uncinate process. - Condition is Stable. - Discharge Instructions: Head Injury, Adult, Laceration Care, Adult, Laceration Care, Adult, [id number]-[id number], Head Injury, Adult, Kyji-va-Pzsy. - Prescriptions for Neosporin (jael- tahir-polym) - Apply to affected area 1 application by TOPICAL route 3 times per day; 30 gram. - Medication Reconciliation Form, Thank You Letter, Antibiotic Education, Prescription Opioid Use form. - Follow up: Private Physician; When: 2 - 3 days; Reason: Recheck today's complaints, Continuance of care, Re-evaluation by your physician. Follow up: Tony Felix; When: 2 - 3 days; Reason: Recheck today's complaints, Continuance of care, Re-evaluation by your physician. Follow up: Devon Calvin MD; When: 2 - 3 days; Reason: Recheck today's complaints, Re-evaluation by your physician. - Problem is new. - Symptoms have improved. Signatures: Dispatcher [employer] Jose Guadalupe Russo MD MD cha Baxter, Heather, RN RN Fernanda Guzmán, RN RN kg Corrections: (The following items were deleted from the chart) 13:47 12:11 10/27/2020 12:11 Discharged to Home. Impression: Fall (on) (from) unspecified stairs and steps; Superficial injury of head - left periorbital injury/ left subconjunctival hemorrhage; Laceration without foreign body of left forearm - skin tear; Abnormal findings on diagnostic imaging of liver and biliary tract - solid 23 mm x 14 mm mass in the Uncinate process. Condition is Stable. Discharge Instructions: Head Injury, Adult, Laceration Care, Adult, Laceration Care, Adult, Dxbl-du-Jolm, Head Injury, Adult, [id number]. Prescriptions for Neosporin ([id number]-usu-silhc) - Apply to affected area 1 application by TOPICAL route 3 times per day; 30 gram. and Forms are Medication Reconciliation Form, Thank You Letter, Antibiotic Education, Prescription Opioid Use. Follow up: Private Physician; When: 2 - 3 days; Reason: Recheck today's complaints, Continuance of care, Re-evaluation by your physician. Follow up: Tony Felix; When: 2 - 3 days; Reason: Recheck today's complaints, Continuance of care, Re-evaluation by your physician. Follow up: Devon Calvin; When: 2 - 3 days; Reason: Recheck today's complaints, Re-evaluation by your physician. Problem is new. Symptoms have improved. kylah
[2020-10-27 13:58] VITALS: BP 161/83; O2SAT 98
== END 2020-10-27 13:47 | disposition home or self-care (01) ==
LOC: ER 09:43
DX: H11.32 Conjunctival hemorrhage, left eye (principal); S51.812A Laceration without foreign body of left forearm, initial encounter; R93.2 Abnormal findings on diagnostic imaging of liver and biliary tract; W05.0XXA Fall from non-moving wheelchair, initial encounter; Y92.009 Unspecified place in unspecified non-institutional (private) residence as the place of occurrence of the external cause; Z23 Encounter for immunization; Z88.0 Allergy status to penicillin; I10 Essential (primary) hypertension
CPT/HCPCS: 93005; 85025; 80048; 36415; 83735; 85610; 80076; 81003; 84484; 83880; 70450; 72125; 71260; 74177; 71045; 90471; 90714; 99284; Q9967; J7030

== ENCOUNTER 2020-12-08 02:39 | Inpatient (IN) | payer OTHER ==
[2020-12-08 03:21] LABS: Absolute Lymphocytes (CBC) 0.7 K/uL (0.7-4.9); Basophils % 1.1 % (0-1.3); Hematocrit 23.4 % (39.6-49.0); MPV 7.8 fL (7.6-11.3); RBC Red Blood Cell Count 2.45 M/uL (4.33-5.43)
[2020-12-08 03:34] LABS: ALT/SGPT 20 U/L (12-78); AST/SGOT 28 U/L (15-37); Albumin 2.5 g/dL (3.4-5.0); Alkaline Phosphatase 65 U/L (45-117); BUN Blood Urea Nitrogen 22 mg/dL (7-18); Bicarbonate 30 mmol/L (21-32); Bilirubin Direct 0.3 mg/dL (0-0.2); Glucose Level 122 mg/dL (74-106); Magnesium 2.4 mg/dL (1.8-2.4); NT PRO-BNP 4883 pg/mL (<125); Potassium 4.7 mmol/L (3.5-5.1); Protein, Total 6.2 g/dL (6.4-8.2); Sodium Level 141 mmol/L (136-145); Troponin (Emerg Dept Use Only) < 0.02 ng/mL (0.0-0.045)
[2020-12-08] MEDS ORDERED: PANTOPRAZOLE 40 MG INJ ONE ×2 (04:38→09:20)
[2020-12-08] MEDS ORDERED: NA CHLORIDE 0.9% 250 ML ONE (04:39)
[2020-12-08 04:45] LABS: Protime INR 21.1
--- NOTE | 2020-12-08 04:50 | EDPHYS ---
Physician Documentation [facility] Name: Chandler Stark Age: 70 yrs Sex: Male : 1950 Arrival Date: 12/08/2020 Time: 02:49 Bed 6 Private MD: ED Physician Kp Hutson HPI: 12/08 02:51 This 70 yrs old Male presents to ER via Unassigned with complaints of mh7 Shortness of Breath. 02:51 The patient has shortness of breath at rest, with light activity. Onset: The mh7 symptoms/episode began/occurred 2 day(s) ago. Duration: The symptoms are continuous, and are steadily getting worse. The patient's shortness of breath is aggravated by coughing, exertion, light activity, is alleviated by nothing. Associated signs and symptoms: Pertinent positives: non-productive cough, Pertinent negatives: chest pain, productive cough, diaphoresis, dizziness, fever, hemoptysis, loss of consciousness, nausea, numbness in extremities, visual changes, vomiting. Severity of symptoms: At their worst the symptoms were moderate last night, in the emergency department the symptoms have improved moderately. Historical: - Allergies: 05:01 PENICILLINS; ad5 - Home Meds: 05:01 amlodipine 5 mg tab 1 tab once daily [Active]; carvedilol 25 mg Oral tab 1 tab 2 times ad5 per day [Active]; lovastatin 20 mg Oral tab 1 tab once daily [Active]; prednisone 5 mg Oral tab once daily [Active]; warfarin 7.5 mg oral tab 1 tab once daily [Active]; citalopram 20 mg tab 1 tab once daily [Active]; Spironolactone Oral once daily [Active]; - PMHx: 05:01 Atrial Fib; CHF; COPD; Hyperlipidemia; Hypertension; ad5 - Immunization history:: Adult Immunizations unknown. - Social history:: Smoking status: unknown. ROS: 02:51 Constitutional: Negative for fever, chills, and weight loss, Eyes: Negative for injury, mh7 pain, redness, and discharge, ENT: Negative for injury, pain, and discharge, Neck: Negative for injury, pain, and swelling, Cardiovascular: Negative for chest pain, palpitations, and edema, Abdomen/GI: Negative for abdominal pain, nausea, vomiting, diarrhea, and constipation, Back: Negative for injury and pain, : Negative for injury, bleeding, discharge, and swelling, MS/Extremity: Negative for injury and deformity, Skin: Negative for injury, rash, and discoloration, Neuro: Negative for headache, weakness, numbness, tingling, and seizure, Psych: Negative for depression, anxiety, suicide ideation, homicidal ideation, and hallucinations, Allergy/Immunology: Negative for hives, rash, and allergies, Endocrine: Negative for neck swelling, polydipsia, polyuria, polyphagia, and marked weight changes, Hematologic/Lymphatic: Negative for swollen nodes, abnormal bleeding, and unusual bruising. Exam: 02:51 Head/Face: Normocephalic, atraumatic. Eyes: Pupils equal round and reactive to light, mh7 extra-ocular motions intact. Lids and lashes normal. Conjunctiva and sclera are non-icteric and not injected. Cornea within normal limits. Periorbital areas with no swelling, redness, or edema. Neck: Trachea midline, no thyromegaly or masses palpated, and no cervical lymphadenopathy. Supple, full range of motion without nuchal rigidity, or vertebral point tenderness. No Meningismus. Chest/axilla: Normal chest wall appearance and motion. Nontender with no deformity. No lesions are appreciated. Cardiovascular: Regular rate and rhythm with a normal S1 and S2. No gallops, murmurs, or rubs. Normal PMI, no JVD. No pulse deficits. 02:51 Back: No spinal tenderness. No costovertebral tenderness. Full range of motion. Skin: Warm, dry with normal turgor. Normal color with no rashes, no lesions, and no evidence of cellulitis. MS/ Extremity: Pulses equal, no cyanosis. Neurovascular intact. Full, normal range of motion. Neuro: Awake and alert, GCS 15, oriented to person, place, time, and situation. Cranial nerves II-XII grossly intact. Motor strength 5/5 in all extremities. Sensory grossly intact. Cerebellar exam normal. Normal gait. Psych: Awake, alert, with orientation to person, place and time. Behavior, mood, and affect are within normal limits. 02:51 Constitutional: The patient appears alert, awake, uncomfortable. 02:51 Respiratory: mild respiratory distress is noted, Respirations: prolonged exhalation, that is mild, tachypnea, that is mild, Breath sounds: rhonchi, that are moderate, are scattered, wheezing: expiratory that is mild, is heard diffusely, Respiratory rate: 24 03:48 Abdomen/GI: Rectal exam: Prostate: normal, rectal tone normal, Stool: brown, guaiac [facility] positive, hemorrhoid(s), are not appreciated, mass, is not appreciated, swelling, is not appreciated, tenderness, is not appreciated, fecal impaction, is not appreciated, the exam is chaperoned by the nurse. Vital Signs: 02:51 BP 105 / 89; Pulse 90; Resp 25; Temp 98.2; Pulse Ox 100% on Nebulizer Mask; ea 03:30 BP 123 / 55; Pulse 89; Resp 24; Pulse Ox 100% on Nebulizer Mask; ad5 04:30 BP 118 / 69; Pulse 91; Resp 23 S; Pulse Ox 97% on 3 lpm NC; ad5 MDM: 04:48 Differential diagnosis: Anemia Anxiety Reaction asthma, Bronchitis CHF exacerbation, [facility] Chronic Obstructive Pulmonary Disease Myocardial Infarction pneumonia, Psychogenic pulmonary edema, reactive airway disease. Data reviewed: vital signs, nurses notes, old medical records, lab test result(s), cardiac enzymes, CBC, electrolytes, EKG, radiologic studies, plain films. Data interpreted: Pulse oximetry: on 2L(s) per nasal canula, is 97 %. Interpretation: normal. Counseling: I had a detailed discussion with the patient and/or guardian regarding: the historical points, exam findings, and any diagnostic results supporting the discharge/admit diagnosis, lab results, radiology results, the need for further work-up and treatment in the hospital. 04:50 Patient medically screened. [facility] 12/08 02:50 Order name: Basic Metabolic Panel [facility] 12/08 02:50 Order name: CBC with Diff [facility] 12/08 02:50 Order name: LFT's [facility] 12/08 02:50 Order name: Magnesium [facility] 12/08 02:50 Order name: NT PRO-BNP [facility] 12/08 02:50 Order name: PT-INR [facility] 12/08 02:50 Order name: Troponin (emerg Dept Use Only) [facility] 12/08 03:07 Order name: Basic Metabolic Panel; Complete Time: 03:36 [facility] 12/08 03:07 Order name: Liver (Hepatic) Function; Complete Time: 03:36 [facility] 12/08 03:07 Order name: Troponin (Emerg Dept Use Only); Complete Time: 03:36 [facility] 12/08 03:07 Order name: NT PRO-BNP; Complete Time: 03:36 [facility] 12/08 03:08 Order name: Magnesium; Complete Time: 03:36 [facility] 12/08 03:08 Order name: CBC with Automated Diff; Complete Time: 03:36 [facility] 12/08 03:08 Order name: Protime (+INR); Complete Time: 05:01 [facility] 12/08 03:47 Order name: Type And Screen [facility] 12/08 05:36 Order name: CORONAVIRUS [facility] 12/08 05:37 Order name: Type and Screen [facility] 12/08 05:42 Order name: Fresh Frozen Plasma [facility] 12/08 07:12 Order name: SARS-COV-2 RT PCR [facility] 12/08 07:24 Order name: ABO/RH no charge [facility] 12/08 09:38 Order name: Antibody Identification [facility] 12/08 12:15 Order name: Protime (+inr) hb 12/08 12:29 Order name: Phosphorus [facility] 12/08 12:29 Order name: Protein, Total [facility] 12/08 12:29 Order name: T4 Free [facility] 12/08 12:29 Order name: Magnesium [facility] 12/08 12:29 Order name: Thyroid Stimulating Hormone [facility] 12/08 12:38 Order name: Hemoglobin [facility] 12/08 12:38 Order name: Hematocrit [facility] 12/08 02:50 Order name: XRAY Chest (1 view) [facility] 12/08 02:50 Order name: EKG; Complete Time: 08:30 [facility] 12/08 02:50 Order name: Cardiac monitoring; Complete Time: 02:55 [facility] 12/08 02:50 Order name: EKG - Nurse/Tech; Complete Time: 02:55 [facility] 12/08 02:50 Order name: IV Saline Lock; Complete Time: 02:55 [facility] 12/08 02:50 Order name: Labs collected and sent; Complete Time: 02:55 [facility] 12/08 02:50 Order name: O2 Per Protocol; Complete Time: 02:55 [facility] 12/08 02:50 Order name: O2 Sat Monitoring; Complete Time: 02:55 [facility] 12/08 03:47 Order name: CT Abd/Pelvis - Without Contrast [facility] 12/08 04:09 Order name: Abdomen [facility] 12/08 04:09 Order name: Chest Single View [facility] 12/08 05:39 Order name: CONS Physician Consult [facility] 12/08 09:06 Order name: CT [facility] 12/08 12:41 Order name: Protime (+INR) EDDE Administered Medications: 04:23 Drug: ProTONIX (pantoprazole) 8 mg/hr Route: IV; Rate: 25 ml/hr; Site: right ea antecubital; 04:24 Drug: ProTONIX (pantoprazole) 80 mg Route: IVP; Site: right antecubital; ea 05:43 Drug: vitamin k 10 mg Route: IV; Rate: calculated rate; Site: right hand; ad5 Disposition Summary: 12/08/20 04:50 Hospitalization Ordered Hospitalization Status: Inpatient Admission [facility] Provider: Reynold Mohan Condition: Stable [facility] Problem: an acute exacerbation [facility] Symptoms: have improved [facility] Bed/Room Type: Standard [facility] Location: Telemetry/MedSurg (Inpatient)(12/08/20 13:35) eb Room Assignment: [facility](12/08/20 13:35) Diagnosis - COPD Exacerbation 7 - Lower GI Bleed [facility] Forms: - Medication Reconciliation Form 7 - SBAR form 7 Signatures: Dispatcher [employer] [facility] Jenny Flannery RN RN Lexie Mayo RN RN tl1 Rakel Austin RN RN ea Botello, Elizabeth eb Holmes, Maurice, MD MD 7 Jaret Beltran ad5 Corrections: (The following items were deleted from the chart) 05:46 04:50 Telemetry/MedSurg (Inpatient) [facility] tl1 05:46 04:50 7 tl1 13:35 05:46 [facility] ER HOLD tl1 eb 13:35 05:46 ERHOLD- tl1 eb
--- NOTE | 2020-12-08 04:50 | ER ---
Nurse's Notes [facility] Name: Chandler Stark Age: 70 yrs Sex: Male : 1950 Arrival Date: 12/08/2020 Time: 02:49 Bed 6 Private MD: Diagnosis: COPD Exacerbation;Lower GI Bleed Presentation: 12/08 02:51 Chief complaint: EMS states: Report pt sats were in the 70s on 4 L per nasal cannula, ea pt was on home O2 and reported he felt SOB for the past two days. EMS initiated 18 G to right AC, mag 2 G, A\T\A, solu medrol 125. Coronavirus screen: At this time, the client does not indicate any symptoms associated with coronavirus-19. Ebola Screen: No symptoms or risks identified at this time. Initial Sepsis Screen: Does the patient meet any 2 criteria? No. Patient's initial sepsis screen is negative. Does the patient have a suspected source of infection? No. Patient's initial sepsis screen is negative. Risk Assessment: Do you want to hurt yourself or someone else? Patient reports no desire to harm self or others. Onset of symptoms was December 08, 2020. 02:51 Method Of Arrival: EMS: [facility] ea 02:51 Acuity: [facility] 3 ea Historical: - Allergies: 05:01 PENICILLINS; ad5 - Home Meds: 05:01 amlodipine 5 mg tab 1 tab once daily [Active]; carvedilol 25 mg Oral tab 1 tab 2 times ad5 per day [Active]; lovastatin 20 mg Oral tab 1 tab once daily [Active]; prednisone 5 mg Oral tab once daily [Active]; warfarin 7.5 mg oral tab 1 tab once daily [Active]; citalopram 20 mg tab 1 tab once daily [Active]; Spironolactone Oral once daily [Active]; - PMHx: 05:01 Atrial Fib; CHF; COPD; Hyperlipidemia; Hypertension; ad5 - Immunization history:: Adult Immunizations unknown. - Social history:: Smoking status: unknown. Screenin:58 Abuse screen: Denies threats or abuse. Denies injuries from another. Nutritional ad5 screening: No deficits noted. Tuberculosis screening: No symptoms or risk factors identified. Fall Risk Fall in past 12 months (25 points). Secondary diagnosis (15 points) IV access (20 points). Ambulatory Aid- None/Bed Rest/Nurse Assist (0 pts). Gait- Weak (10 pts.). Mental Status- Oriented to own ability (0 pts). Total Sanders Fall Scale indicates High Risk Score (45 or more points). Fall prevention measures have been instituted. Side Rails Up X 2 Placed Close to Nursing Station Frequent Obs/Assessments Occuring Family Present and informed to notify staff if the need to leave the bedside As available patient and family educated on Fall Prevention Program and Strategies. Assessment: 02:55 General: Appears distressed, Behavior is calm, cooperative, appropriate for age. Pain: ad5 Denies pain. Neuro: No deficits noted. Level of Consciousness is awake, alert, obeys commands, Oriented to person, place, time, situation, Appropriate for age. Cardiovascular: No deficits noted. Heart tones present Capillary refill < 3 seconds Patient's skin is warm and dry. Rhythm is irregular. Cardiovascular: Pulses are all present. Respiratory: Airway is patent Respiratory effort is labored, Respiratory pattern is regular, tachypnea Breath sounds are diminished bilaterally. GI: No deficits noted. No signs and/or symptoms were reported involving the gastrointestinal system. : No deficits noted. No signs and/or symptoms were reported regarding the genitourinary system. Derm: Skin is dry, Skin is normal, Skin temperature is warm. Musculoskeletal: No deficits noted. No signs and/or symptoms reported regarding the musculoskeletal system. 03:45 Reassessment: Rectal exam assist with MD at bedside, pt tolerated well. Pt cleaned of ad5 stool, new gown applied. Repositioned for comfort in ED stretcher. Bed remains low and locked, bedrails up, call light within reach. Pt S.O. remains at bedside. Pt reports improvement in SOB at this time. VSS. NAD noted, will continue to monitor. 04:29 Reassessment: Patient and/or family updated on plan of care and expected duration. Pain ea level reassessed. Patient is alert, oriented x 3, equal unlabored respirations, skin warm/dry/pink. Pt taken to CT. Vital Signs: 02:51 BP 105 / 89; Pulse 90; Resp 25; Temp 98.2; Pulse Ox 100% on Nebulizer Mask; ea 03:30 BP 123 / 55; Pulse 89; Resp 24; Pulse Ox 100% on Nebulizer Mask; ad5 04:30 BP 118 / 69; Pulse 91; Resp 23 S; Pulse Ox 97% on 3 lpm NC; ad5 ED Course: 02:49 Patient arrived in ED. ea 02:50 Kp Hutson MD is Attending Physician. [facility] 02:54 Jaret Beltran is Primary Nurse. ad5 02:55 Patient has correct armband on for positive identification. Bed in low position. Call ad5 light in reach. Side rails up X2. dough mixer operator on. Pulse ox on. NIBP on. Door closed. Noise minimized. Warm blanket given. Head of bed lowered. 02:55 Initial lab(s) drawn, by me, sent to lab. Inserted saline lock: 20 gauge in left ad5 antecubital area, using aseptic technique. Blood collected. Maintain EMS IV. Dressing intact. Good blood return noted. Site clean \T\ dry. Gauge \T\ site: 20g R hand. 02:59 Triage completed. ea 03:00 Arm band placed on right wrist. Patient placed in an exam room, on a stretcher, on ea pulse oximetry. 04:20 Chest Single View In Process Unspecified. EDMS 04:34 Abdomen Sent. ad5 04:37 Abdomen In Process Unspecified. EDMS 04:49 Reynold Mohan is Hospitalizing Provider. [facility] Administered Medications: 04:23 Drug: ProTONIX (pantoprazole) 8 mg/hr Route: IV; Rate: 25 ml/hr; Site: right ea antecubital; 04:24 Drug: ProTONIX (pantoprazole) 80 mg Route: IVP; Site: right antecubital; ea 05:43 Drug: vitamin k 10 mg Route: IV; Rate: calculated rate; Site: right hand; ad5 Outcome: 04:50 Decision to Hospitalize by Provider. [facility] 14:31 Patient left the ED. Signatures: Dispatcher [employer] EDMS Meredith Guadarrama RN RN Rakel Austin RN RN Kp Hutson MD MD [facility] Jaret Beltran ad5
[2020-12-08] MEDS ORDERED: VITAMIN K (ADULT) 10 MG/ML IVP ONE ×3 (05:12→05:36)
[2020-12-08] MEDS ORDERED: VITAMIN K (ADULT) 10 MG/ML ONE (06:02)
[2020-12-08] MEDS ORDERED: NA CHLORIDE 0.9% 50 ML ONE (06:02)
--- NOTE | 2020-12-08 06:46 | P.HP ---
Certification for Inpatient Patient admitted to: Inpatient With expected LOS: >2 Midnights Patient will require the following post-hospital care: None Practitioner: I am a practitioner with admitting privileges, knowledge of patient current condition, hospital course, and medical plan of care. Services: Services provided to patient in accordance with Admission requirements found in Title 42 Section 412.3 of the Code of Federal Regulations Patient History Date of Service: 12/08/20 Reason for admission: LGIB, coumadin reversal History of Present Illness: Mr. Stark is a 70 yo M with COPD on 3L Home O2, CHF, HTN, afib on coumadin and HLD brought in by EMS for SOB beginning last night. Patient was stabilized with breathing treatments and O2, then found to have an H/H of 7.6. FOBT returned positive. PT 250.2, INR 21.1. CT A/P within normal limits, CT head pending. Patient says a few weeks ago he fell, and since then he has been very weak and had a lot of bruising. He says he has not returned to baseline since the fall. He reports wheezing. Denies cough, sputum production, hemoptysis, melena, hematuria. Allergies Penicillins Allergy (Verified 12/08/20 06:26) Itching Home Medications: Amlodipine [Norvasc*] 5 mg PO DAILY 10/02/14 Budesonide/Formoterol Fumarate [Symbicort 160-4.5 Mcg Inhaler] 1 puff IH BID 10/02/14 Lovastatin 20 mg PO DAILY 10/08/16 Carvedilol [Coreg] 25 mg PO BID #60 tablet 10/10/16 Warfarin Sodium [Coumadin*] 7.5 mg PO DAILY 5 PM 11/03/16 Albuterol Neb [Proventil 0.083% Neb Soln] 2.5 mg NEB [id number] PRN #120 amp 10/10/20 Benzonatate [Tessalon Perle*] 100 mg PO TID PRN #30 cap 10/10/20 Ensure Enlive 237 ml PO BID #60 can 10/10/20 Nebulizer [Aeroneb Go Nebulizer] 1 each MC QID #1 each 10/10/20 Spironolactone [Aldactone*] 25 mg PO DAILY 30 Days #30 tab 10/10/20 Citalopram Hydrobromide [Citalopram HBr] 20 mg PO DAILY 12/08/20 predniSONE [Deltasone] 1 tab PO DAILY 12/08/20 - Past Medical/Surgical History Diabetic: No -: COPD -: History of AFib -: CHF -: HTN -: HYPERLIPIDEMIA -: R REPAIR TO LEG - Family History Father -: Heart disease, Hypertension Notes: FROM [place] Mother -: Lung disease Notes: COPD - Social History Smoking Status: Unknown if ever smoked Alcohol use: Yes CD- Drugs: No Caffeine use: Yes Place of Residence: Home Review of Systems 10-point ROS is otherwise unremarkable General: Weakness Respiratory: Cough, Shortness of Breath, Wheezing Neurological: Weakness Physical Examination - Vital Signs Blood Pressure: 129/68 Pulse: 95 Respirations: 25 Pulse Ox (%): 98 - Physical Exam General: Alert, In no apparent distress HEENT: Atraumatic, PERRLA, Mucous membr. moist/pink, EOMI, Sclerae nonicteric Neck: Supple, 2+ carotid pulse no bruit, No LAD, Without JVD or thyroid abnormality Respiratory: Diminished Cardiovascular: Regular rate/rhythm, Normal S1 S2 Gastrointestinal: Normal bowel sounds, No tenderness Musculoskeletal: No tenderness Integumentary: Other (ecchymoses) Neurological: Normal speech, Normal strength at 5/5 x4 extr, Normal tone, Normal affect Lymphatics: No axilla or inguinal lymphadenopathy - Studies Laboratory Data (last 24 hrs) 12/08/20 03:55: PT 250.2 H, INR 21.10 H* 12/08/20 02:44: WBC 8.60, Hgb 7.6 L, Hct 23.4 L, Plt Count 252 12/08/20 02:44: Sodium 141, Potassium 4.7, BUN 22 H, Creatinine 1.28, Glucose 122 H, Magnesium 2.4, Total Bilirubin 1.0, AST 28, ALT 20, Alkaline Phosphatase 65 Assessment and Plan - Problems (Diagnosis) (1) Anemia Current Visit: Yes Status: Acute Qualifiers: Anemia type: iron deficiency Iron deficiency anemia type: chronic blood loss Qualified Code(s): D50.0 - Iron deficiency anemia secondary to blood loss (chronic) (2) Lower GI bleed Current Visit: Yes Status: Acute (3) Coumadin toxicity Current Visit: Yes Status: Acute Qualifiers: Encounter type: initial encounter Injury intent: accidental or unintentional Qualified Code(s): T45.511A - Poisoning by anticoagulants, accidental (unintentional), initial encounter (4) INR (international normal ratio) abnormal Current Visit: Yes Status: Acute (5) COPD exacerbation Onset Date: 10/03/14 Current Visit: No Status: Acute (6) Chronic anticoagulation Current Visit: No Status: Chronic (7) Hypoxia Onset Date: 10/08/16 Current Visit: No Status: Acute (8) Afib Onset Date: 11/04/16 Current Visit: No Status: Chronic Qualifiers: Atrial fibrillation type: paroxysmal Qualified Code(s): I48.0 - Paroxysmal atrial fibrillation (9) CHF (congestive heart failure) Onset Date: 11/04/16 Current Visit: No Status: Chronic Qualifiers: Qualified Code(s): I50.32 - Chronic diastolic (congestive) heart failure (10) COPD (chronic obstructive pulmonary disease) Onset Date: 11/04/16 Current Visit: No Status: Chronic Qualifiers: COPD type: chronic bronchitis Chronic bronchitis type: simple Qualified Code(s): J41.0 - Simple chronic bronchitis (11) HLD (hyperlipidemia) Onset Date: 11/04/16 Current Visit: No Status: Chronic Qualifiers: Hyperlipidemia type: mixed hyperlipidemia Qualified Code(s): E78.2 - Mixed hyperlipidemia (12) HTN (hypertension) Onset Date: 11/04/16 Current Visit: No Status: Chronic Qualifiers: Hypertension type: primary hypertension Qualified Code(s): I10 - Essential (primary) hypertension - Plan IV Vitamin K infusion and FFP given per pharmacy and poison control recommendations, check vitals q15 minutes recheck INR 6 hours post vitamin K infusion GI consulted Patient is NPO, continue IVF hydration, continue IV protonix H&H q4hr, type and screen complete, will transfuse to goal >7 CT head pending O2, breathing treatments PRN, continue IV steroids on telemetry,SCDs PT consulted, dietitian consulted Discharge Plan: Home Plan to discharge in: 72 Hours - Advance Directives Does patient have a Living Will: No Does patient have a Durable POA for Healthcare: No - Code Status/Comfort Care Code Status Assessed: Yes (full code ) Critical Care: Yes Time Spent Managing Pts Care (In Minutes): 70
[2020-12-08] MEDS ORDERED: NA CHLORIDE 0.9% 250 ML IV PRN (07:57)
[2020-12-08] MEDS ORDERED: ACETAMINOPHEN 500 MG TAB PO PRN (07:57)
[2020-12-08] MEDS: PANTOPRAZOLE INJ 80 MG in NA CHLORIDE 0.9% 250 ML IV SCH ×3 (07:57→23:59)
[2020-12-08] MEDS ORDERED: ALBUTEROL 2.5 MG/3 ML NEB SOL NEB PRN (07:57)
[2020-12-08] MEDS: NA CHLORIDE 0.9% 1,000 ML IV SCH ×2 (07:57→17:19)
[2020-12-08] MEDS ORDERED: ONDANSETRON 4 MG/2 ML VIAL IV PRN (07:57)
[2020-12-08] MEDS: IPRATROPIUM BROM 0.5MG/2.5ML NEB SCH ×4 (08:00→20:15)
[2020-12-08] MEDS ORDERED: NA CHLORIDE 0.9% 100 ML ONE ×2 (08:59→10:00)
[2020-12-08] MEDS: METHYLPREDNISOLONE 40 MG INJ IV SCH ×2 (09:00→17:00)
--- NOTE | 2020-12-08 09:01 | EKG ---
Test Date: 2020-12-08 Test Time: 02:49:37 Repairer Screen Crusher: MARICHUY MEASUREMENT RESULTS: Intervals: Rate: 99 VT: QRSD: 110 QT: 374 QTc: 479 Bowler: P: VT: QRS: 55 T: 57 INTERPRETIVE STATEMENTS: Atrial fibrillation with premature ventricular or aberrantly conducted complexes Low voltage QRS Incomplete right bundle branch block Abnormal ECG Compared to ECG 10/27/2020 09:57:43 Ventricular premature complex(es) now present Low QRS voltage now present Incomplete right bundle-branch block now present Sinus rhythm no longer present Fusion complex(es) no longer present Electronically Signed On 12-08-20 09:01:05 CDT by Kenn Hinojosa
--- NOTE | 2020-12-08 09:05 | RAD REPORT ---
EXAM DESCRIPTION: CT - Head Brain Wo Cont - 12/08/2020 8:54 am CLINICAL HISTORY: Falls COMPARISON: None. TECHNIQUE: Axial 5 mm thick images of the head were obtained without IV contrast. All CT scans are performed using dose optimization technique as appropriate and may include automated exposure control or mA/KV adjustment according to patient size. FINDINGS: No intracranial hemorrhage, mass, edema or shift of mid-line structures. No acute infarcti on changes seen. No abnormal extra-axial fluid collections. Cerebral atrophy with chronic small vess el ischemic changes. Hyperdense secretions in the right maxillary sinus noted. These may be inspissated. No acute bony findings. IMPRESSION: No acute intracranial abnormality. No skull fracture.
[2020-12-08] MEDS ORDERED: NA CHLORIDE 0.9% 1,000 ML ONE (10:00)
[2020-12-08 10:21] VITALS: BMI 24.3
[2020-12-08] MEDS ORDERED: LORazepam 2 MG/ML VIAL IV ONE (11:41)
[2020-12-08] MEDS ORDERED: METHYLPREDNISOLONE 125 MG INJ ONE (12:21)
[2020-12-08] MEDS ORDERED: LORazepam 2 MG/ML VIAL ONE (12:22)
[2020-12-08 12:27] LABS: Magnesium 2.4 mg/dL (1.8-2.4); Phosphorus 3.4 mg/dL (2.5-4.9); Protein, Total 6.1 g/dL (6.4-8.2)
[2020-12-08 12:28] LABS: Thyroid Stimulating Hormone 9.05 uIU/mL (0.360-3.740)
[2020-12-08] MEDS ORDERED: IPRATROPIUM BROM 0.5MG/2.5ML ONE (12:31)
[2020-12-08 12:37] LABS: Hematocrit 21.9 % (39.6-49.0)
[2020-12-08 12:39] LABS: Protime INR 1.99
--- NOTE | 2020-12-08 13:15 | RAD REPORT ---
EXAM DESCRIPTION: RAD - Chest Single View - 12/08/2020 4:20 am CLINICAL HISTORY: SOB COMPARISON: Chest Single View dated 10/27/2020; Chest Single View dated 10/09/2020; Chest Single View d ated 03/28/2018; Chest Single View dated 03/17/2017 FINDINGS: No evidence of edema or pneumonia. Cardiomegaly.No acute osseous abnormality. No significa nt pleural effusions or pneumothorax. IMPRESSION: No acute cardiopulmonary disease.
--- NOTE | 2020-12-08 15:37 | P.PN ---
Date of Service: 12/08/20 Patient quite anxious this morning. INR rapidly corrected to 1.99. Hemoglobin 7.6 Plan: Continue to hold Coumadin due to positive fecal occult blood. GI consulted. Continue to monitor H&H and transfuse p.r.n. for hemoglobin less than 7. Resumed antianxiety medications. Ativan p.r.n. for anxiety attack.
[2020-12-08 17:07] LABS: Hematocrit 21.6 % (39.6-49.0)
[2020-12-08] MEDS: CITALOPRAM 10 MG TABLET PO SCH (17:18)
[2020-12-08 19:29] LABS: Protime INR 1.52
[2020-12-08] MEDS: HOME MED 1 EA UNK (Budesonide/Formoterol Fumarate [Symbicort 160-4.5 Mcg Inhaler] 10.2 GM IH SCH (20:22)
[2020-12-08 20:28] LABS: Hematocrit 20.6 % (39.6-49.0)
--- NOTE | 2020-12-08 20:36 | RAD REPORT ---
EXAM DESCRIPTION: RAD - Chest Single View - 12/08/2020 8:18 pm CLINICAL HISTORY: SOB, Hx CHF COMPARISON: Chest Single View dated 12/08/2020; Chest Single View dated 10/27/2020; Chest Single View d ated 10/09/2020; Chest Single View dated 03/28/2018 FINDINGS: No evidence of edema or pneumonia. Mild cardiomegaly.No acute osseous abnormality. No sign ificant pleural effusions or pneumothorax. IMPRESSION: No acute cardiopulmonary disease.
[2020-12-09] MEDS ORDERED: NA CHLORIDE 0.9% 250 ML ONE
[2020-12-09] MEDS: METHYLPREDNISOLONE 40 MG INJ IV SCH ×3 (00:14→16:27)
[2020-12-09] MEDS: PANTOPRAZOLE INJ 80 MG in NA CHLORIDE 0.9% 250 ML IV SCH ×3 (03:57→21:24)
[2020-12-09] MEDS: IPRATROPIUM BROM 0.5MG/2.5ML NEB SCH ×6 (04:00→20:00)
[2020-12-09] MEDS ORDERED: NA CHLORIDE 0.9% 250 ML IV SCH (05:00)
[2020-12-09] MEDS: ALBUTEROL 2.5 MG/3 ML NEB SOL NEB PRN ×2 (08:55→16:25)
[2020-12-09] MEDS: HOME MED 1 EA UNK (Budesonide/Formoterol Fumarate [Symbicort 160-4.5 Mcg Inhaler] 10.2 GM IH SCH ×2 (09:00→19:49)
[2020-12-09] MEDS: CITALOPRAM 10 MG TABLET PO SCH (10:28)
[2020-12-09] MEDS: SPIRONOLACTONE 25 MG TABLET PO SCH (10:28)
[2020-12-09 11:33] LABS: Protime INR 1.23
[2020-12-09 11:35] LABS: Absolute Lymphocytes (CBC) 0.3 K/uL (0.7-4.9); Basophils % 0.1 % (0-1.3); Hematocrit 27.5 % (39.6-49.0); Lymphocytes % 3.1 % (15.3-44.8); MPV 7.7 fL (7.6-11.3); RBC Red Blood Cell Count 2.93 M/uL (4.33-5.43)
[2020-12-09 11:47] LABS: Albumin 2.8 g/dL (3.4-5.0); Bilirubin Total 1.2 mg/dL (0.2-1.0); Magnesium 2.1 mg/dL (1.8-2.4); Potassium 4.5 mmol/L (3.5-5.1); Protein, Total 6.2 g/dL (6.4-8.2)
--- NOTE | 2020-12-09 12:57 | P.PN ---
Subjective Date of Service: 12/09/20 Chief Complaint: Heme+ stool, anemia, coumadin toxicity, INR 21.1, COPD excerbation Subjective: Improving (Less short of breath today after 2 units of PRBCs overnight. CXR last night was negative. now states he gets SOB with anxiety and that he has never had a colonoscopy. He still denies ever seeing any blood.) Review of Systems 10-point ROS is otherwise unremarkable Respiratory: Shortness of Breath (improved. ) Physical Examination - Vital Signs Temperature: 97.6 F Blood Pressure: 111/63 Pulse: 78 Respirations: 17 Pulse Ox (%): 97 - Physical Exam General: Alert, In no apparent distress, Oriented x3, Cooperative, Disheveled HEENT: Atraumatic, Normocephalic, PERRLA, EOMI Neck: Supple Respiratory: Diminished Cardiovascular: Normal pulses Gastrointestinal: Distended (tympany to percussion) Neurological: Normal speech Assessment And Plan - Current Problems (Diagnosis) (1) Heme positive stool Current Visit: Yes Status: Acute (2) Anemia Current Visit: Yes Status: Acute Qualifiers: Anemia type: iron deficiency Iron deficiency anemia type: chronic blood loss Qualified Code(s): D50.0 - Iron deficiency anemia secondary to blood loss (chronic) (3) Coumadin toxicity Current Visit: Yes Status: Acute Qualifiers: Encounter type: initial encounter Injury intent: accidental or unintentional Qualified Code(s): T45.511A - Poisoning by anticoagulants, accidental (unintentional), initial encounter (4) INR (international normal ratio) abnormal Current Visit: Yes Status: Acute (5) COPD exacerbation Onset Date: 10/03/14 Current Visit: No Status: Acute (6) Chronic atrial fibrillation Current Visit: No Status: Acute (7) Anxiety Onset Date: 11/04/16 Current Visit: No Status: Chronic - Plan REC: 1) colonoscopy / EGD when pulmonary stable for procedure 2) COPD therapy 3) serial H&Hs and transfuse prn 4) CL diet 5) IVFs d/c'd yesterday 6) continue PPI therapy
[2020-12-09 13:27] LABS: Blood Morphology Comment NOT SEEN (NOT SEEN); Platelet Estimate ADEQ; White Blood Cell Scan OK (OK)
--- NOTE | 2020-12-09 13:51 | P.PN ---
Subjective Date of Service: 12/09/20 Chief Complaint: Heme+ stool, anemia, coumadin toxicity, INR 21.1, COPD excerbation No bloody stools. Patient denies any complain. Status post 2 units PRBC transfusion. Physical Examination - Vital Signs Temperature: 97.6 F Blood Pressure: 111/63 Pulse: 78 Respirations: 17 Pulse Ox (%): 97 - Physical Exam General: Alert, Oriented x3 HEENT: Mucous membr. moist/pink Neck: JVD not distended Respiratory: Clear to auscultation bilaterally, Normal air movement Cardiovascular: No edema, Regular rate/rhythm, Normal S1 S2 Gastrointestinal: Normal bowel sounds, Soft and benign, Non-distended, No tenderness Musculoskeletal: No swelling Neurological: Normal strength at 5/5 x4 extr Assessment And Plan - Current Problems (Diagnosis) (1) Acute blood loss anemia Current Visit: Yes Status: Acute (2) Coumadin toxicity Current Visit: Yes Status: Acute Qualifiers: Encounter type: initial encounter Injury intent: accidental or unintentional Qualified Code(s): T45.511A - Poisoning by anticoagulants, accidental (unintentional), initial encounter (3) Heme positive stool Current Visit: Yes Status: Acute (4) Chronic atrial fibrillation Current Visit: No Status: Acute (5) COPD (chronic obstructive pulmonary disease) Onset Date: 11/04/16 Current Visit: No Status: Chronic Qualifiers: COPD type: chronic bronchitis Chronic bronchitis type: simple Qualified Code(s): J41.0 - Simple chronic bronchitis - Plan Status post 2 units PRBC transfusion. Patient is on Coumadin anticoagulation for AFib. Heart rate controlled. INR reversed. GI input appreciated. Dr. Peguero is planning for endoscopy. Continue to hold warfarin until endoscopy.
--- NOTE | 2020-12-09 15:06 | RAD REPORT ---
EXAM DESCRIPTION: CT - Abdomen Pelvis Wo Contrast - 12/08/2020 6:44 am CLINICAL HISTORY: The patient is 70 years old and is Male; GI BLEED TECHNIQUE: Axial computed tomography images of the abdomen and pelvis without intravenous contrast. Sagittal and coronal reformatted images were created and reviewed. This CT exam was performed usi ng one or more of the following dose reduction techniques: automated exposure control, adjustment o f the mA and/or kV according to patient size, and/or use of iterative reconstruction technique. COMPARISON: CT abdomen and pelvis October 27, 2020. FINDINGS: Lung bases: Bibasilar atelectasis. ABDOMEN: Liver: Stable 2 cm cyst in the left liver. Gallbladder and bile ducts: Unremarkable. No calcified stones. No ductal dilation. Pancreas: Stable 2.3 cm cystic lesion in the pancreatic head. No ductal dilation. Spleen: Unremarkable. No splenomegaly. Adrenals: Unremarkable. No mass. Kidneys and ureters: Atrophic right kidney. No obstructing stones. No hydronephrosis. Stomach and bowel: Unremarkable. No obstruction. No mucosal thickening. PELVIS: Appendix: No findings to suggest acute appendicitis. Bladder: Unremarkable. No stones. Reproductive: Unremarkable as visualized. ABDOMEN and PELVIS: Intraperitoneal space: Unremarkable. No free air. No significant fluid collection. Bones/joints: No acute fracture. No dislocation. Soft tissues: There is the suggestion of a partially visualized hematoma in the posterior muscula ture of the left thigh. Vasculature: Scattered atherosclerotic vascular calcifications. No abdominal aortic aneurysm. Lymph nodes: Unremarkable. No enlarged lymph nodes. IMPRESSION: No acute findings in the abdomen or pelvis. Electronically signed by: Gigi Childress MD 12/08/2020 5:29 AM CDT Due to temporary technical issues with the PACS/Fluency reporting system, reports are being signed by the in house radiologists without review as a courtesy to insure prompt reporting. The interpreting radiologist is fully responsible for the content of the report.
[2020-12-09] MEDS ORDERED: WARFARIN SODIUM 3 MG TAB PO SCH (17:00)
[2020-12-09] MEDS: ATORVASTATIN 10 MG TAB PO SCH (19:50)
[2020-12-10] MEDS: IPRATROPIUM BROM 0.5MG/2.5ML NEB SCH ×6 (00:30→20:00)
[2020-12-10] MEDS: METHYLPREDNISOLONE 40 MG INJ IV SCH ×3 (01:36→16:47)
[2020-12-10 06:01] LABS: Absolute Lymphocytes (CBC) 0.2 K/uL (0.7-4.9); Basophils % 0.1 % (0-1.3); Hematocrit 27.5 % (39.6-49.0); Lymphocytes % 2.2 % (15.3-44.8); MPV 7.6 fL (7.6-11.3); RBC Red Blood Cell Count 2.94 M/uL (4.33-5.43)
[2020-12-10 06:07] LABS: Protime INR 1.19
[2020-12-10 06:09] LABS: Potassium 4.3 mmol/L (3.5-5.1)
[2020-12-10] MEDS: PANTOPRAZOLE INJ 80 MG in NA CHLORIDE 0.9% 250 ML IV SCH ×2 (06:40→17:08)
[2020-12-10] MEDS: CITALOPRAM 10 MG TABLET PO SCH (08:48)
[2020-12-10] MEDS: SPIRONOLACTONE 25 MG TABLET PO SCH (08:48)
[2020-12-10] MEDS ORDERED: LORazepam 2 MG/ML VIAL IV ONE (08:54)
[2020-12-10] MEDS: HOME MED 1 EA UNK (Budesonide/Formoterol Fumarate [Symbicort 160-4.5 Mcg Inhaler] 10.2 GM IH SCH ×2 (09:00→20:42)
[2020-12-10] MEDS ORDERED: HOME MED 1 EA UNK (Lovastatin [Lovastatin] 20 MG Tablet) PO SCH (09:00)
[2020-12-10] MEDS: ALBUTEROL 2.5 MG/3 ML NEB SOL NEB PRN ×2 (09:00→16:45)
--- NOTE | 2020-12-10 13:44 | P.PN ---
Subjective Date of Service: 12/10/20 Chief Complaint: Heme+ stool, anemia, coumadin toxicity, INR 21.1, COPD excerbation No bloody stools. Patient denies any complain. He looks anxious today. Status post 2 units PRBC transfusion. No BM since admission. Physical Examination - Vital Signs Temperature: 96.9 F Blood Pressure: 134/66 Pulse: 105 Respirations: 24 Pulse Ox (%): 91 - Physical Exam General: Alert, In no apparent distress, Oriented x3 HEENT: Mucous membr. moist/pink Neck: JVD not distended Respiratory: Clear to auscultation bilaterally, Normal air movement Cardiovascular: No edema, Normal S1 S2, Other (Tachycardia, irregular.) Gastrointestinal: Soft and benign, Non-distended, No tenderness Musculoskeletal: No swelling Integumentary: No rashes Neurological: Normal speech, Normal strength at 5/5 x4 extr Assessment And Plan - Current Problems (Diagnosis) (1) Acute blood loss anemia Current Visit: Yes Status: Acute (2) Coumadin toxicity Current Visit: Yes Status: Acute Qualifiers: Encounter type: initial encounter Injury intent: accidental or unintentional Qualified Code(s): T45.511A - Poisoning by anticoagulants, accidental (unintentional), initial encounter (3) Heme positive stool Current Visit: Yes Status: Acute (4) Chronic atrial fibrillation Current Visit: No Status: Acute (5) COPD (chronic obstructive pulmonary disease) Onset Date: 11/04/16 Current Visit: No Status: Chronic Qualifiers: COPD type: chronic bronchitis Chronic bronchitis type: simple Qualified Code(s): J41.0 - Simple chronic bronchitis - Plan Status post 2 units PRBC transfusion. Posttransfusion hemoglobin is stable. AFib with uncontrolled heart rate. Resume Coreg INR reversed. Resume Coumadin at 3 mg daily GI input appreciated. Dr. Peguero is planning for endoscopy when stable respiratory malagon. Endoscopy to be done as an outpatient Patient complaining of generalized weakness and inability to ambulate. PT to evaluate for discharge planning.
[2020-12-10] MEDS ORDERED: WARFARIN SODIUM 3 MG TAB PO SCH (17:00)
[2020-12-10] MEDS: ATORVASTATIN 10 MG TAB PO SCH (20:41)
[2020-12-11] MEDS: IPRATROPIUM BROM 0.5MG/2.5ML NEB SCH ×5 (01:00→20:05)
[2020-12-11] MEDS: PANTOPRAZOLE INJ 80 MG in NA CHLORIDE 0.9% 250 ML IV SCH (02:56)
[2020-12-11] MEDS: METHYLPREDNISOLONE 40 MG INJ IV SCH ×2 (02:58→08:51)
[2020-12-11 06:07] LABS: Absolute Lymphocytes (CBC) 0.2 K/uL (0.7-4.9); Basophils % 0.1 % (0-1.3); Hematocrit 26.5 % (39.6-49.0); Lymphocytes % 1.8 % (15.3-44.8); MPV 8.1 fL (7.6-11.3); RBC Red Blood Cell Count 2.83 M/uL (4.33-5.43)
[2020-12-11 06:28] LABS: Potassium 4.1 mmol/L (3.5-5.1)
[2020-12-11 06:34] LABS: Protime INR 1.36
--- NOTE | 2020-12-11 07:19 | P.PN ---
Subjective Date of Service: 12/11/20 Chief Complaint: Heme+ stool, anemia, coumadin toxicity, INR 21.1, COPD excerbation Subjective: Improving (feeling ok, denies bleeding, reports having anxiety / panic attacks at times, impeding ability to work with PT - thinks it affects his breathing. L leg pain is ongoing, mild-mod severity) Review of Systems 10-point ROS is otherwise unremarkable Physical Examination - Vital Signs Temperature: 97.1 F Blood Pressure: 138/65 Pulse: 88 Respirations: 16 Pulse Ox (%): 100 Assessment & Plan Physician Review Additional Text: Physical Exam General: Alert, In no apparent distress, Oriented x3 HEENT: Mucous membr. moist/pink Respiratory: Clear to auscultation bilaterally, slight diminished at bases bilaterally Cardiovascular: No edema, Normal S1 S2, irregularly irregular rhythm Gastrointestinal: Soft and benign, Non-distended, No tenderness Musculoskeletal: No swelling Integumentary: No rashes Neurological: Normal speech, normal affect Problem List Acute blood loss anemia secondary to GI bleed in setting of coumadin toxicity Coumadin toxicity Heme positive stool Chronic atrial fibrillation Acute on chronic COPD exacerbation -s/p 2u PRBCs, Hgb stable post-transfusion -Atrial fibrillation, restarted home Coreg 12/11 -INR reversed, resumed coumadin 3mg qHS 12/10 -GI consulted - Dr. Peguero -recommends endoscopy as an outpatient once respiratory status stable. More urgent/emergent if bleeding persists -pt with generalized weakness, PT consulted -change IV protonix to PO - BID -working towards SNF on discharge Dispo: anticipate dc to SNF in 24-48hrs Time Spent Managing Pts Care (In Minutes): 45
--- NOTE | 2020-12-11 08:26 | CON ---
Date of Consultation: 12/08/2020 Reason For Consultation: Heme-positive stool with anemia, hemoglobin 7.6. History Of Present Illness: Patient is a 70-year-old white male with history of COPD, congestive hea rt failure, hypertension, atrial fibrillation on Coumadin, hyperlipidemia. Patient was admitted to [facility] due to acute shortness of breath. Patient was found to have hemoglobin of 7.6, heme-positive stool, but patient denies any melena, hematochezia, hematemesis, coffee-grounds emesis, hematuria, h emoptysis. He states he has not seen any blood. He came to the hospital because he was short of jeannie ath. He does have atrial fibrillation on Coumadin. His INR on admission was found to be 21.0 with P T of 250.2 with Coumadin toxicity. This has been corrected with FFP and vitamin K and his INR has co me down from 21 down to 1.99 within 9 hours since admission at approximately 4 o'clock in the morning to 1 o'clock in the afternoon. Past Medical History: Significant for COPD on home O2, congestive heart failure. BNP on this hospit alization approximately 5000. Hypertension. Atrial fibrillation on Coumadin with Coumadin toxicity on this admission. Hyperlipidemia. Right leg surgery. Patient does not recall last colonoscopy cata e . Unclear if he really had one, but he assumes he had one in the past. Medications: At home included Norvasc, Symbicort, lovastatin, Coreg, Coumadin, Proventil, Tessalon P erles, Ensure, Aeroneb nebulizer, Aldactone, citalopram, prednisone. Allergies: TO PENICILLIN, WHICH GIVES HIM ITCHING. Past Family History: Father had history of hypertension, coronary artery disease; of myocardial infarction x2. Mother of COPD and had multiple other medical problems as per patient. Social History: He is . No children. Positive for alcohol. No tobacco. Quit in 1989 when he got . Review of Systems: Patient has shortness of breath. He denies seeing any blood anywhere including no hematochezia, no m lashanda, no hematemesis. No hematuria, dysuria, polydipsia, chest pain, though he does have shortness of breath. He also denies any fevers, chills, night sweats, heat or cold intolerance, chest pain, se izures, syncope. He does have some mild lower extremity edema. No depression. He does have anxiety attacks as per chart and as per adjacent report right now. Physical Examination: Vital Signs: 5 feet 10 inches, 130 pounds, BMI 24.4 kg/sq m. He has a temperature of 98.3 degrees F ahrenheit; pulse 91, up to 109; respiratory rate 18; blood pressure 115/58; O2 saturation 100% on 3 L of O2. HEENT: Normocephalic, atraumatic. Anicteric. Pupils equal, round, and reactive to light. General: He is a somewhat elderly disheveled male lying in bed, in some mild distress with shortness of breath at rest. Neck: Supple. No masses. Respirations: Decreased breath sounds at bases. Some increased labored breathing. Mild wheezing. Cardiac: Regular rate and rhythm. No gallops or rubs. Abdomen: Positive bowel sounds. Soft. Mild distention with tympany throughout abdomen, but no nikita toneal or Reveles sign. No rebound. Extremities: No clubbing, no cyanosis. Mild lower extremity edema. Neuro: Alert and oriented x3. Able to move all extremities well. Data: Patient has white count of 8.6, hemoglobin 7.6 down to 7.1, hematocrit of 23, MCV of 95, plate let count 252, polys of 77%, lymphs 8%, monocytes 11%, eosinophils 3%. PT of 250.2, INR o f 21.10. PT later today at 12:27 was 23.1, INR down to 1.99. Repeat tonight at 7 p.m. has PT of 17. 6, INR of 1.52. Patient has sodium of 141, potassium 4.7, chloride 107, bicarb 30, BUN 22, creatinin e of 1.28, glucose 122, calcium 8.3, magnesium 2.4, total bilirubin 1.0, direct bilirubin 0.3, AST of 20, ALT of 20, alkaline phosphatase 65. Rapid troponin I less than 0.02. B type natriuretic peptid e of 4883. Total protein 6.2, albumin 2.5. TSH of 9.050, free T4 of 1.16 is normal. COVID-19 testi ng was negative. Chest x-ray at 4 o'clock this morning revealed no acute cardiopulmonary distress. Also, patient has IV fluids going at 100 cc an hour and IV Protonix at 25 cc an hour. Impression: 1.Heme-positive stool with anemia of hemoglobin 7.6. Patient has shortness of breath at rest, curre ntly in bed, but he denies any melena, hematochezia, hematemesis, coffee-grounds emesis, hematuria, h emoptysis, or other. He has seen no blood at all. We will consider checking guaiac stools and proce eding with colonoscopy, EGD when patient is more stable from pulmonary standpoint and his hemoglobin is above 8. 2.Coagulopathy. PT of 250.2, INR of 21.10 and now has corrected down to an INR of 1.5 with FFP and vitamin K. 3.Chronic obstructive pulmonary disease exacerbation, shortness of breath at rest. conge stive heart failure and is on IV fluids of normal saline at 100 cc an hour with IV Protonix 25 cc/tammy r. 4.History of congestive heart failure with B type natriuretic peptide of 4883. Therefore, we will d iscontinue the IV of normal saline at this time. Get a chest x-ray, and if needed, we will give IV L asix. With creatinine of 1.28 and potassium of 4.7. 5.He has a history of chronic obstructive pulmonary disease on home O2, congestive heart failure, hy pertension, atrial fibrillation on Coumadin, hyperlipidemia, right lower extremity surgery. Recommendation: 1.Colonoscopy when patient's pulmonary stable and COPD exacerbation is over. Also if congestive hea rt failure to ascertain this with chest x-ray and give Lasix as indicated and when hemoglo bin is greater than 8 for colonoscopy or EGD. Also, patient to consider outpatient EGD with low hemo globin, especially if upper GI symptoms present. 2.COPD exacerbation therapy, which is ongoing. 3.Serial H and H and transfuse p.r.n. 4.Discontinue IV fluids. 5.Check x-ray now. 6.Clear liquids. 7.Continue PPI therapy, though can be changed to b.i.d. dosing and IV or switch to p.o. since patien t cannot swallow. Would keep patient on clear liquids in setting of possible GI bleed, though patien t denies seeing any blood that his hemoglobin is low for unclear reasons. I would also ____ guaiac stools. COTY/RIGO Voice ID: [id number] Report ID: [id number]
[2020-12-11] MEDS: CITALOPRAM 10 MG TABLET PO SCH (08:51)
[2020-12-11] MEDS: SPIRONOLACTONE 25 MG TABLET PO SCH (08:51)
[2020-12-11] MEDS: HOME MED 1 EA UNK (Budesonide/Formoterol Fumarate [Symbicort 160-4.5 Mcg Inhaler] 10.2 GM IH SCH ×3 (08:52→20:38)
[2020-12-11] MEDS: ALBUTEROL 2.5 MG/3 ML NEB SOL NEB PRN (13:30)
[2020-12-11] MEDS: PANTOPRAZOLE 40MG TABLET PO SCH (15:52)
[2020-12-11] MEDS ORDERED: GOLYTELY 4000 ML PO SCH (17:00)
[2020-12-11] MEDS ORDERED: MAGNESIUM CITRATE 300 ML BOT PO SCH (17:00)
[2020-12-11] MEDS: carvediloL 25 MG TAB PO SCH (20:32)
[2020-12-11] MEDS: predniSONE 20 MG TAB PO SCH (20:32)
[2020-12-11] MEDS: ATORVASTATIN 10 MG TAB PO SCH (20:32)
[2020-12-12] MEDS ORDERED: LORazepam 2 MG/ML VIAL IV ONE ×2 (01:05→16:00)
[2020-12-12] MEDS ORDERED: LORazepam 2 MG/ML VIAL ONE (01:36)
[2020-12-12] MEDS: IPRATROPIUM BROM 0.5MG/2.5ML NEB SCH ×3 (02:20→14:00)
[2020-12-12 05:23] LABS: Magnesium 2.3 mg/dL (1.8-2.4); Potassium 3.9 mmol/L (3.5-5.1); Protime INR 1.6
[2020-12-12 05:24] LABS: Absolute Lymphocytes (CBC) 0.2 K/uL (0.7-4.9); Hematocrit 28.9 % (39.6-49.0); Lymphocytes % 1.2 % (15.3-44.8); MPV 7.6 fL (7.6-11.3); RBC Red Blood Cell Count 3.06 M/uL (4.33-5.43)
[2020-12-12] MEDS ORDERED: KCL 20 MEQ/100 mL IVPB 20 MEQ/100 ML BAG IV SCH (07:30)
[2020-12-12] MEDS: ALBUTEROL 2.5 MG/3 ML NEB SOL NEB PRN (07:55)
--- NOTE | 2020-12-12 08:04 | RAD REPORT ---
EXAM DESCRIPTION: Ry Single View12/12/2020 7:16 am CLINICAL HISTORY: Shortness of breath COMPARISON: December 08 FINDINGS: The interstitial pattern within the lungs mildly prominent. Heart is mildly enlarged IMPRESSION: Mild prominence interstitial pattern within the lungs may indicate mild interstitial pul monary edema
[2020-12-12] MEDS ORDERED: Ringers Lactate 1,000 ML IV ONE (08:39)
[2020-12-12] MEDS: HOME MED 1 EA UNK (Budesonide/Formoterol Fumarate [Symbicort 160-4.5 Mcg Inhaler] 10.2 GM IH SCH (09:00)
[2020-12-12 09:52] LABS: Blood Morphology Comment NOT SEEN (NOT SEEN); Platelet Estimate ADEQ
[2020-12-12 09:53] LABS: Basophilic Stippling 1+
[2020-12-12] MEDS ORDERED: propofoL 200 MG/20 ML VIAL IV ONE ×3 (10:12)
[2020-12-12] MEDS ORDERED: LIDOCAINE 1% MPF 5 ML VIAL ONE (10:13)
[2020-12-12] MEDS ORDERED: EPINEPHRINE/PF 1 MG/ML AMP ONE (10:13)
--- NOTE | 2020-12-12 10:43 | ENDO RPT ---
[address], [address] EGD PROCEDURE REPORT EXAM DATE: 12/12/2020 PATIENT NAME: Chandler Stark MR#: [id number] BIRTHDATE: 1950 ATTENDING: Tunde Peguero Dr STATUS: inpatient - [facility] PROGRAM ENGINEER: Marsha Mauricio RN and Kamilah Espionza INDICATIONS: The patient is a 70 yr old Male here for an EGD due to upper G.I. bleeding, anemia, and hemoccult positive stools PROCEDURE PERFORMED: EGD with biopsy MEDICATIONS: Per Anesthesia. TOPICAL ANESTHETIC: none CONSENT: The patient understands the risks and benefits of the procedure and understands that these risks include, but are not limited to: sedation, allergic reaction, infection, perforation and/or bleeding. Alternative means of evaluation and treatment include, among others: physical exam, x-rays, and/or surgical intervention. The patient elects to proceed with this endoscopic procedure. DESCRIPTION OF PROCEDURE: During intra-op preparation period all mechanical medical equipment was checked for proper function. Hand hygiene and appropriate measures for infection prevention was taken. Procedure, possible complications, and alternatives including but not limited to the possibility of bleeding, perforation, tear, infection, sepsis, need for surgery, need for blood transfusion, and anesthesia related complications were explained to the patient. After the risks, benefits and alternatives of the procedure were thoroughly explained, Informed consent was verified, confirmed and timeout was successfully executed by the treatment team. The patient was placed in the left lateral position. The patient was anesthetized with topical anesthesia. Through the anesthetized oropharyngeal area, the scope was passed without any difficulty. The EC-3890Li ([id number]), EC-[id number] ([id number]), and Pentax [id number] ([id number]) endoscope was introduced through the mouth and advanced to the second portion of the duodenum. Retroflexed views revealed a small hiatal hernia. The gastroscope was then slowly withdrawn and removed. A small hiatal hernia was found Mild Atrophic gastritis was found in the total stomach. Multiple biopsies were obtained and sent to pathology. ADVERSE EVENTS: There were no complications. IMPRESSIONS: 1. Small hiatal hernia 2. Mild atrophic gastritis in the total stomach, s/p biopsies RECOMMENDATIONS: 1. await biopsy results 2. acid suppression therapy REPEAT EXAM: Tunde Peguero Dr eSigned: Tunde Peguero Dr 12/12/2020 10:42 AM cc: CPT CODES: ICD9 CODES: PATIENT NAME: Chandler Stark MR#: [id number]
--- NOTE | 2020-12-12 11:09 | ENDO RPT ---
[address], [address] COLONOSCOPY PROCEDURE REPORT EXAM DATE: 12/12/2020 PATIENT NAME: Chandler Stark MR #: [id number] BIRTHDATE: 1950 ATTENDING: Tunde Peguero Dr STATUS: inpatient - [facility] CANDLE CUTTER: Marsha Mauricio RN and Kamilah Espinoza INDICATIONS: The patient is a 70 yr old Male here for a colonoscopy due to hemoccult positive stools and anemia PROCEDURE PERFORMED: Colonoscopy with snare polypectomy and Colon w/ endoclip MEDICATIONS: Per Anesthesia. ESTIMATED BLOOD LOSS: None CONSENT: The patient understands the risks and benefits of the procedure and understands that these risks include, but are not limited to: sedation, allergic reaction, infection, perforation and/or bleeding. Alternative means of evaluation and treatment include, among others: physical exam, x-rays, and/or surgical intervention. The patient elects to proceed with this endoscopic procedure. DESCRIPTION OF PROCEDURE: During intra-op preparation period all mechanical medical equipment was checked for proper function. Hand hygiene and appropriate measures for infection prevention was taken. Procedure, possible complications, alternatives including, but not limited to possibility of bleeding, perforation, tear, infection, sepsis, need for surgery, need for blood transfusion, were explained to the patient. After the risks, benefits and alternatives of the procedure were thoroughly explained, Informed consent was verified, confirmed and timeout was successfully executed by the treatment team. The patient was placed in the left lateral position. A digital rectal exam was performed and revealed no abnormalities of the rectum. After appropriate level of anesthesia, the scope was passed. The EG-[id number] ([id number]) and EC-3890Li ([id number]) endoscope was introduced through the anus and advanced to the cecum. The quality of the prep was poor. The instrument was then slowly withdrawn as the colon was fully examined. Scope withdrawal time was 11 minutes. COLON FINDINGS: A polypoid shaped sessile polyp measuring 1.8 cm in size was found in the ascending colon. A polypectomy was performed using snare cautery. The resection was complete, the polyp tissue was completely retrieved and sent to histology. The wound at the site was closed by placing hemoclips. Two (2) placements were made. There was minimal blood loss from maneuver subsiding by end of procedure. Two (2) placements were made. There was minimal blood loss from maneuver subsiding by end of procedure. A few sessile polyps were found throughout the entire examined colon. A half circumferential polypoid shaped mass, measuring 4 X 1.5cm in size, was found in the ascending colon. Retroflexed views revealed no abnormalities. The scope was then completely withdrawn from the patient and the procedure terminated. ADVERSE EVENTS: There were no complications. IMPRESSIONS: 1. 1.8 cm sessile polyp in the ascending colon; polypectomy was performed in a piecemeal fashion using snare cautery; the wound at the site was closed by placing hemoclips X2 2. Few 5-10 mm sessile / pedunculated polyps throughout the entire examined colon (not removed in setting of GI bleed with restart of Coumadin recently in 3. Half circumferential mass, measuring 4 X 1.5cm in size, was found in the mid ascending colon (at slight left turn in the ascending colon) RECOMMENDATIONS: 1. await biopsy results 2. avoid NSAIDS for 2 weeks 3. CEA level (CT abdomen/pelvis and CXR already done) 4. tertiary center for possible advanced endoscopic resection of this ascending colon mass with bleeding during Coumadin toxicity (hold Coumadin for A fib and use Lovenox for now, consider other agent long-term for A fib) RECALL: Return in 1 year(s) for Colonoscopy. Tunde Peguero Dr eSigned: Tunde Peguero Dr 12/12/2020 11:09 AM cc: CPT CODES: ICD9 CODES: 1. 239.0 Neoplasm of unspecified nature of digestive system 2. 211.3 Benign neoplasm of colon PATIENT NAME: Chandler Stark MR#: [id number]
[2020-12-12 12:22] VITALS: BP 167/77; TEMP 97
[2020-12-12] MEDS: PANTOPRAZOLE 40MG TABLET PO SCH ×2 (14:33→14:36)
[2020-12-12] MEDS: SPIRONOLACTONE 25 MG TABLET PO SCH (14:34)
[2020-12-12] MEDS: predniSONE 20 MG TAB PO SCH (14:35)
[2020-12-12] MEDS: CITALOPRAM 10 MG TABLET PO SCH (14:35)
[2020-12-12] MEDS: carvediloL 25 MG TAB PO SCH (14:36)
--- NOTE | 2020-12-12 16:51 | P.DS ---
Admission Date: 12/08/20 Discharge Date: 12/12/20 Disposition: TRANSFER TO SNF - REHAB Reason for Admission: Heme+ stool, anemia, coumadin toxicity, INR 21.1, COPD excerbation Consultations: GI - Dr. Peguero Procedures: CXR (12/08): No acute cardiopulmonary disease CT Abd/Pelvis (12/08): No acute findings in the abdomen or pelvis. CT Head (12/08): No acute intracranial abnormality. No skull fracture. FINDINGS: No intracranial hemorrhage, mass, edema or shift of mid-line structures. No acute infarction changes seen. No abnormal extra-axial fluid collections. Cerebral atrophy with chronic small vessel ischemic changes. Hyperdense secretions in the right maxillary sinus noted. These may be inspissated. CXR (12/08): No acute cardiopulmonary disease. CXR (12/12): Mild prominence interstitial pattern within the lungs may indicate mild interstitial pulmonary edema EGD (12/12): 1. Small hiatal hernia 2. Mild atrophic gastritis in the total stomach, status post biopsies Recommendations await biopsy results, acid suppression therapy. C-scope (12/12): 1. 1.8 cm sessile polyp in the ascending colon. Polypectomy was performed in a piecemeal fashion using snare cautery. The wound at the site was closed by placing hemoclips x2. 2. Few 5-10 mm sessile/pedunculated polyps throughout the entire examined colon. Not removed in the setting of GI bleed with recently reinitiation of Coumadin 3. Half circumferential mass, measuring 4 x 1.5 cm in size, was found in the mid ascending colon (had slight (in the ascending colon) Recommendations: Await biopsy results, avoid NSAIDs for 2 weeks, CEA level, tertiary care center for possible advanced endoscopic resection of this ascending colon mass with bleeding during Coumadin toxicity. Problem List Acute blood loss anemia secondary to GI bleed in setting of coumadin toxicity GI bleed likely secondary to ascending colon mass found on colonoscopy complicated by coumadin toxicity Heme positive stool Chronic atrial fibrillation Acute on chronic COPD exacerbation Brief History of Present Illness: 70 yo M with COPD on 3L Home O2, CHF, HTN, afib on coumadin and HLD brought in by EMS for SOB beginning last night. Patient was stabilized with breathing treatments and O2, then found to have an H/H of 7.6. FOBT returned positive. PT 250.2, INR 21.1. CT A/P within normal limits, CT head pending. Patient says a f ew weeks ago he fell, and since then he has been very weak and had a lot of bruising. He says he has not returned to baseline since the fall. He reports wheezing. Denies cough, sputum production, hemoptysis, melena, hematuria. Hospital Course: Patient's Coumadin was held on admission, his supratherapeutic INR was reversed with vitamin K. His hemoglobin dropped to six-point 7 in the evening of 12/08. He received 2 units PRBCs with hemoglobin up to 9.0. On day of discharge his hemoglobin was 9.7. GI was consulted and initially recommended delayed endoscopy due to patient's breathing status. Patient was treated for acute on chronic COPD exacerbation with rather quick improvement. His Coumadin was restarted on the evening of 12/10 at a dose of 3 mg. GI ultimately took patient for endoscopy on 12/12, which revealed a 4 cm mass, concerning for cancer. It was not bleeding at the time of endoscopy, however is likely the source of lower GI bleed in the setting of supratherapeutic INR/Coumadin toxicity. It was recommended the patient be transferred to tertiary care center to undergo further evaluation and likely endoscopic resection of this mass. This was di scussed with the patient and his at length. They ultimately decided they did not want to go through any further evaluation or procedure at this time. They wanted to continue with prior plan of discharge to shelter facility to continue physical therapy/rehab and monitoring for GI bleed recurrence. The risk of bleeding versus clot/stroke from A. fib was extensively discussed as well. Recommended aspirin 81 mg daily due to the risk of ongoing bleed. Patient and his stated that he had been stable on Coumadin for over a decade did not want to increase his risk for blood clot or stroke. He decided he wanted to continue with Coumadin despite the risk of bleeding. Was recommended to restart his Coumadin on discharge at a lower dose of 3 mg daily, with frequent INR and CBC checks initially. Throughout the patient's hospitalization he did seem to have intermittent episodes of tachypnea. On further discussion with the patient and his , this seemed more related to anxiety and panic attack then COPD/respiratory distress. Vital Signs/Physical Exam: Physical Exam General: Alert, In no apparent distress, Oriented x3 HEENT: Mucous membr. moist/pink Respiratory: Clear to auscultation bilaterally, slight diminished at bases bilaterally, nonlabored on 3L NC Cardiovascular: No edema, Normal S1 S2, irregularly irregular rhythm Gastrointestinal: Soft and benign, Non-distended, No tenderness Musculoskeletal: No swelling Integumentary: No rashes Neurological: Normal speech, normal affect Temp Pulse Resp BP Pulse Ox 97.0 F 104 H 21 H 167/77 H 86 L 12/12/20 12:00 12/12/20 12:00 12/12/20 12:00 12/12/20 12:00 12/12/20 12:00 Laboratory Data at Discharge: WBC 14.20 K/uL (4.3-10.9) H D 12/12/20 03:51 Hgb 9.7 g/dL (13.6-17.9) L 12/12/20 03:51 Hct 28.9 % (39.6-49.0) L 12/12/20 03:51 Plt Count 245 K/uL (152-406) 12/12/20 03:51 PT 18.5 SECONDS (9.5-12.5) H 12/12/20 03:51 INR 1.60 12/12/20 03:51 Sodium 143 mmol/L (136-145) 12/12/20 03:51 Potassium 3.9 mmol/L (3.5-5.1) 12/12/20 03:51 BUN 21 mg/dL (7-18) H 12/12/20 03:51 Creatinine 0.92 mg/dL (0.55-1.3) 12/12/20 03:51 Glucose 115 mg/dL (74-106) H 12/12/20 03:51 Phosphorus 3.4 mg/dL (2.5-4.9) 12/08/20 05:44 Magnesium 2.3 mg/dL (1.8-2.4) 12/12/20 03:51 Total Bilirubin 1.2 mg/dL (0.2-1.0) H 12/09/20 11:14 AST 27 U/L (15-37) 12/09/20 11:14 ALT 24 U/L (12-78) 12/09/20 11:14 Alkaline Phosphatase 59 U/L (45-117) 12/09/20 11:14 Triglycerides 88 mg/dL (<150) 12/09/20 11:14 Cholesterol 152 mg/dL (<200) 12/09/20 11:14 HDL Cholesterol 43 mg/dL (40-60) 12/09/20 11:14 Cholesterol/HDL Ratio 3.53 12/09/20 11:14 Home Medications: Amlodipine [Norvasc*] 5 mg PO DAILY 10/02/14 Budesonide/Formoterol Fumarate [Symbicort 160-4.5 Mcg Inhaler] 1 puff IH BID 10/02/14 Lovastatin 20 mg PO DAILY 10/08/16 Carvedilol [Coreg] 25 mg PO BID #60 tablet 10/10/16 Albuterol Neb [Proventil 0.083% Neb Soln] 2.5 mg NEB [id number] PRN #120 amp 10/10/20 Benzonatate [Tessalon Perle*] 100 mg PO TID PRN #30 cap 10/10/20 Ensure Enlive 237 ml PO BID #60 can 10/10/20 Nebulizer [Aeroneb Go Nebulizer] 1 each MC QID #1 each 10/10/20 Spironolactone [Aldactone*] 25 mg PO DAILY 30 Days #30 tab 10/10/20 Citalopram Hydrobromide [Citalopram HBr] 20 mg PO DAILY 12/08/20 predniSONE [Prednisone*] 1 tab PO DAILY 12/08/20 Pantoprazole [Protonix Tab*] 40 mg PO BIDAC tab 12/12/20 Warfarin Sodium [Coumadin*] 3 mg PO DAILY 5 PM #0 tab 12/12/20 Physician Discharge Instructions: You were found to have a very elevated INR level, indicating very thin blood. This is likely the cause for your anemia and lower gastrointestinal bleed. This was reversed with medications. Dr. Peguero of gastroenterology was consulted. You underwent EGD and colonoscopy on 12/12 which revealed a 4 x 1.5 cm mass in the ascending colon. Recommended transfer to [facility] for possible endoscopic resection. You discussed with your and decided not to proceed with this. You would prefer to continue to work on your physical therapy/strength. We discussed the risk of bleeding versus blood clot/stroke due to A. fib. Due to the mass and need for blood thinner, recommend a baby aspirin, however you would like to continue on coumadin and monitor for signs of bleeding. Recommend restarting coumadin at a lower dose of 3mg night, goal INR: 2-3. You were also noted to have a mild acute COPD exacerbation and treated with nebulizers and prednisone. Follow up with PCP in 3-5 days. Follow up with Pulmonology in ~2 weeks. Follow up with GI in ~3-4 weeks. Diet: AHA Activity: Ad grace Followup: Mian Lay MD [Primary Care Provider] - 1-2 Weeks (resolution specialist- call to schedule an appointment ) Tunde Peguero MD [ASSOCIATE-ACTIVE - CAN ADMIT] - (GI- follow up in 3-4 weeks, call to schedule an appointment ) Time spent managing pt's care (in minutes): 45
[2020-12-12 17:07] VITALS: O2SAT 98
== END 2020-12-12 17:51 | DRG 393 ==
LOC: ER 02:39 → ERHOLD 05:38 → 2ND 13:52
PROVIDERS: ADMIT Internal Medicine; ATTEND Internal Medicine
PROC: 30233N1 Transfusion of Nonautologous Red Blood Cells into Peripheral Vein, Percutaneous Approach (ICD-10-PCS; 2020-12-08)
PROC: 0DBK8ZX Excision of Ascending Colon, Via Natural or Artificial Opening Endoscopic, Diagnostic (ICD-10-PCS; principal; 2020-12-12 09:00)
PROC: 0DB68ZX Excision of Stomach, Via Natural or Artificial Opening Endoscopic, Diagnostic (ICD-10-PCS; 2020-12-12 09:00)
DX: K63.89 Other specified diseases of intestine (principal); J96.01 Acute respiratory failure with hypoxia; D62 Acute posthemorrhagic anemia; K92.1 Melena; J44.1 Chronic obstructive pulmonary disease with (acute) exacerbation; I50.32 Chronic diastolic (congestive) heart failure; T45.515A Adverse effect of anticoagulants, initial encounter; D12.2 Benign neoplasm of ascending colon; D12.4 Benign neoplasm of descending colon; D12.3 Benign neoplasm of transverse colon; I48.91 Unspecified atrial fibrillation; I11.0 Hypertensive heart disease with heart failure; F41.9 Anxiety disorder, unspecified; K29.40 Chronic atrophic gastritis without bleeding; K44.9 Diaphragmatic hernia without obstruction or gangrene; Z88.0 Allergy status to penicillin; Z79.01 Long term (current) use of anticoagulants; Z20.822 Contact with and (suspected) exposure to COVID-19; Z99.81 Dependence on supplemental oxygen
CPT/HCPCS: 36415; 36430; 70450; 71045; 74176; 80048; 80053; 80061; 80076; 82947; 83735; 83880; 84100; 84155; 84439; 84443; 84484; 85014; 85018; 85025; 85610; 86850; 86870; 86900; 86901; 86922; 88305; 88312; 93005; 94640; 96374; 97110; 97112; 97161; 97530; 99284; C9113; J0171; J2704; J2920; J2930; J3430; J3480; J7030; J7050; J7120; J7512; P9016; P9059; U0003

== ENCOUNTER 2021-06-08 09:12 | Inpatient (IN) | payer OTHER ==
[2021-06-08 09:46] LABS: Urine Blood Trace-intact (Negative); Urine Glucose Negative (Negative); Urine Protein Negative (Negative); Urine Specific Gravity 1.025 (1.005-1.030)
[2021-06-08] MEDS ORDERED: NA CHLORIDE 0.9% 100 ML ONE (10:02)
[2021-06-08] MEDS ORDERED: CEFTRIAXONE 1000 MG/VIAL ONE (10:02)
[2021-06-08] MEDS ORDERED: NA CHLORIDE 0.9% 1,000 ML ONE (10:03)
[2021-06-08 10:15] LABS: Absolute Lymphocytes (CBC) 0.5 K/uL (0.7-4.9); Lymphocytes % 3.4 % (15.3-44.8); MPV 8.9 fL (7.6-11.3); RBC Red Blood Cell Count 3.84 M/uL (4.33-5.43)
[2021-06-08 10:16] LABS: Protime INR 1.66
--- NOTE | 2021-06-08 10:28 | RAD REPORT ---
EXAM DESCRIPTION: CT - Head Brain Wo Cont - 06/08/2021 10:18 am CLINICAL HISTORY: MENTAL STATUS CHANGE COMPARISON: Head Brain Wo Cont dated 12/08/2020; HEAD BRAIN W O CONTRAST dated 11/21/2010 TECHNIQUE: All CT scans are performed using dose optimization technique as appropriate and may inclu de automated exposure control or mA/KV adjustment according to patient size. FINDINGS: No intracranial hemorrhage, hydrocephalus or extra-axial fluid collection.No areas of brai n edema or evidence of midline shift. Cerebral atrophy. Intracranial atherosclerosis. Right mastoid fluid. Near complete opacification of the right maxillary sinus. IMPRESSION: No acute intracranial abnormality.
[2021-06-08 10:42] LABS: Albumin 2.9 g/dL (3.4-5.0); Bilirubin Direct 0.3 mg/dL (0-0.2); Bilirubin Total 0.6 mg/dL (0.2-1.0); Magnesium 3.3 mg/dL (1.8-2.4); Potassium 3.8 mmol/L (3.5-5.1); Protein, Total 6.9 g/dL (6.4-8.2)
[2021-06-08] MEDS ORDERED: METHYLPREDNISOLONE 125 MG INJ ONE (10:44)
[2021-06-08] MEDS ORDERED: LEVALBUTEROL 1.25 MG/3 ML NEB ONE (10:44)
[2021-06-08] MEDS ORDERED: THIAMINE 200 MG/2 ML INJ ONE (10:44)
[2021-06-08] MEDS ORDERED: TETANUS & DIPHTHERIA TOX,ADULT 0.5 ML VIAL ONE (10:45)
[2021-06-08] MEDS ORDERED: FAMOTIDINE 20 MG/2 ML VIAL IV ONE (10:45)
[2021-06-08] MEDS ORDERED: ATROPINE SULF 1 MG/10 ML SYR IV ONE (10:45)
[2021-06-08 10:48] LABS: Troponin High Sensitivity 92.3 pg/mL (<58.9)
--- NOTE | 2021-06-08 10:51 | ER ---
Nurse's Notes [facility] Name: Chandler Stark Age: 70 yrs Sex: Male : 1950 Arrival Date: 06/08/2021 Time: 09:17 Bed 6 Private MD: Diagnosis: Dehydration;Dyspnea;COPD/ Chronic obstructive pulmonary disease with (acute) exacerbation;Altered mental status, unspecified;Weakness;Acute kidney failure, unspecified-on chronic;Chronic atrial fibrillation;detention (current) use of anticoagulants Presentation: 06/08 09:47 Chief complaint: EMS states: Altered mental status EMS was called due to patient being ww altered. Spouse present and states that yesterday she noticed foul urine odor. This morning he was very confused when he is usually AAO x 4. Coronavirus screen: Vaccine status: Patient reports being unvaccinated. Client denies travel out of the [place] in the last 14 days. Ebola Screen: Patient negative for fever greater than or equal to 101.5 degrees Fahrenheit, and additional compatible Ebola Virus Disease symptoms Patient denies exposure to infectious person. Patient denies travel to an Ebola-affected area in the 21 days before illness onset. Initial Sepsis Screen: Does the patient meet any 2 criteria? RR > 20 per min. Altered Mental Status. HR > 90 bpm. Yes Does the patient have a suspected source of infection? No. Patient's initial sepsis screen is negative. Risk Assessment: Do you want to hurt yourself or someone else? Patient reports no desire to harm self or others. Onset of symptoms was June 07, 2021. 09:47 Method Of Arrival: EMS: [facility] ww 09:47 Acuity: [facility] 2 ww Triage Assessment: 09:50 General: Appears uncomfortable, unkempt, Behavior is flat. Pain: Denies pain. EENT: No ww deficits noted. Neuro: Level of Consciousness is awake, confused, Oriented to none. Cardiovascular: Capillary refill is sluggish Rhythm is atrial fibrillation. Respiratory: Airway is patent Respiratory effort is even, unlabored, Respiratory pattern is regular, symmetrical, Parent/caregiver reports the patient having wears 3L of NC at home. GI: No deficits noted. Abdomen is non-distended, Abd is soft and non tender X 4 quads. bowel movement present on admission to ER. : Urine is ivan yellow covered in urine when arrived to ER with a foul odor. Derm: Skin is fragile, is thin, left han skin tear. bilateral feet has dry flaky skin and toenails are curled under toes. Skin is. Historical: - Allergies: 09:50 PENICILLINS; ww - PMHx: 09:50 Atrial Fib; CHF; COPD; Hyperlipidemia; Hypertension; staph infection in lungs; ww - Immunization history:: Adult Immunizations Client reports having NOT received the Covid vaccine. Pneumococcal vaccine is up to date, Flu vaccine is not up to date. - Social history:: Smoking status: Patient denies any tobacco usage or history of. - Family history:: not pertinent. - Code Status:: DNAR. Screenin:23 Abuse screen: Denies threats or abuse. Nutritional screening: No deficits noted. tw2 Tuberculosis screening: No symptoms or risk factors identified. Fall Risk Secondary diagnosis (15 points) impaired mobility. 09:55 Sepsis Screening: . Infection: Patient has suspected or documented infection. ww Assessment: 10:20 Reassessment: Patient appears in no apparent distress at this time. Neuro: Level of ww Consciousness is awake, obeys commands, lethargic, responds to verbal commands. Oriented to person, place. 11:38 Reassessment: Patient appears in no apparent distress at this time. No changes from ww previously documented assessment. Patient and/or family updated on plan of care and expected duration. Pain level reassessed. 13:25 Reassessment: Report attempted to floor, advised the nurse is at lunch and she will jg9 call when she gets back. 14:07 Reassessment: Patient appears in no apparent distress at this time. No changes from ww previously documented assessment. Patient and/or family updated on plan of care and expected duration. Pain level reassessed. Vital Signs: 09:45 BP 103 / 62; Pulse 71; Resp 25; Pulse Ox 94% on 3 lpm NC; ww 09:47 BP 98 / 60; Pulse 103; Resp 23; Temp 97.2(TE); Pulse Ox 98% on 3 lpm NC; Weight 72.57 ww kg (R); Height 5 ft. 9 in. (175.26 cm); Pain 0/10; 10:00 BP 115 / 65; Pulse 80; Resp 18; Pulse Ox 95% on 3 lpm NC; ww 11:37 BP 97 / 54; Pulse 90; Resp 12; Pulse Ox 100% on 4 lpm NC; ww 12:00 BP 95 / 58; Pulse 94; Resp 19 S; Pulse Ox 100% on 3 lpm NC; jg9 12:30 BP 104 / 73; Pulse 89; Resp 21 S; Pulse Ox 100% on R/A; jg9 13:15 BP 121 / 65; Pulse 91; Resp 16; Pulse Ox 97% on 3 lpm NC; jg9 14:07 BP 95 / 54; Pulse 83; Resp 16; Pulse Ox 100% on NC; ww 09:47 Body Mass Index 23.63 (72.57 kg, 175.26 cm) ww ED Course: 09:17 Patient arrived in ED. eb 09:24 Jose Guadalupe Velasco MD is Attending Physician. kylah 09:47 Alisia Cardenas, RN is Primary Nurse. ww 09:50 Triage completed. ww 09:50 Arm band placed on right wrist. ww 09:55 Patient has correct armband on for positive identification. Fall risk band placed. ww Placed in gown. Bed in low position. Call light in reach. Side rails up X2. Adult w/ patient. monitor and storage bin tender on. Pulse ox on. NIBP on. Warm blanket given. cleaned patient and changed linens .. 09:55 Initial lab(s) drawn, by ED staff, sent to lab. First set of blood cultures drawn by ED ww staff, Urine collected: straight cath specimen, ivan colored, EKG done, by ED staff, reviewed by Jose Guadalupe Velasco MD COVID swab sent to lab. Maintain EMS IV. Dressing intact. Good blood return noted. Site clean \T\ dry. Gauge \T\ site: 20g left wrist. Inserted saline lock: 22 gauge in right antecubital area, using aseptic technique. Blood collected. Oxygen administration via nasal cannula \T\ 3L/min. 09:58 Basic Metabolic Panel Sent. ww 09:58 CBC with Diff Sent. ww 10:18 CT Head Brain wo Cont In Process Unspecified. EDMS 10:46 XRAY Chest (1 view) In Process Unspecified. EDMS 10:46 Reynold Mohan is Hospitalizing Provider. kylah 14:34 No provider procedures requiring assistance completed. Patient admitted, IV remains in ww place. Administered Medications: 10:07 Drug: NS 0.9% 1000 ml Route: IV; Rate: 1 bolus; Site: left antecubital; ww 11:10 Follow up: IV Status: Completed infusion; IV Intake: 1000ml jg9 10:07 Drug: Rocephin (cefTRIAXone) 1 grams Route: IV; Rate: per protocol; Site: left ww antecubital; 10:50 Drug: SOLU-Medrol (methylPrednisoLONE) 125 mg Route: IVP; Site: right antecubital; ww 13:30 Follow up: Response: No adverse reaction jg9 10:54 Drug: Xopenex (levalbuterol) 2.5 mg Route: Inhalation; ww 13:30 Follow up: Response: No adverse reaction jg9 10:54 Drug: Pepcid (famotidine) 20 mg Route: IVP; Site: left antecubital; ww 11:03 Not Given (Duplicate Order): Atropine 0.5 mg IVP once kylah 11:10 Drug: foLIC Acid 1 mg Route: IVPB; Site: right antecubital; ww 13:30 Follow up: Response: No adverse reaction jg9 11:13 Drug: Thiamine 100 mg Route: IV; Rate: bolus; Site: right antecubital; ww 13:30 Follow up: IV Status: Completed infusion jg9 11:13 Drug: AtroVENT (ipratropium) Aerosol 0.5 mg Route: Inhalation; ww 11:35 Drug: Tetanus-Diphtheria Toxoid Adult 0.5 ml {Nurse Auditor: [employer]. Exp: jg9 10/05/2021. Lot #: [id number]. } Route: IM; Site: right deltoid; 11:40 Drug: Lovenox (enoxaparin) 40 mg Route: Sub-Q; Site: right lower abdomen; jg9 Intake: 11:10 IV: 1000ml; Total: 1000ml. jg9 Outcome: 10:51 Decision to Hospitalize by Provider. kylah 14:33 Admitted to Med/surg accompanied by tech, family with patient, via stretcher, with ww oxygen, with chart, Report called to Anion 14:33 Condition: stable 14:33 Instructed on the need for admit, safety practices. 14:34 Patient left the ED. ww Signatures: Dispatcher [employer] EDJose Guadalupe Mendoza MD MD cha Wise, Tara RN RN tw2 Francisca Miguel Jennifer, RN RN jg9 Alisia Cardenas, RN RN ww
--- NOTE | 2021-06-08 10:51 | EDPHYS ---
Physician Documentation [facility] Name: Chandler Stark Age: 70 yrs Sex: Male : 1950 Arrival Date: 06/08/2021 Time: 09:17 Bed 6 Private MD: ED Physician Jose Guadalupe Velasco HPI: 06/08 10:17 This 70 yrs old Male presents to ER via EMS with complaints of weak, ams and kylah sob. 10:17 The patient has shortness of breath at rest, with light activity. Onset: The kylah symptoms/episode began/occurred 3 day(s) ago. Duration: The symptoms are continuous, and are steadily getting worse. The patient's shortness of breath is aggravated by nothing, is alleviated by nothing. weak, no drinking, hx copd, ams x 2 days. The patient presents with confusion, decreased mental status, decreased responsiveness, trouble concentrating. Possible causes: CVA or TIA, head injury, low blood sugar, sepsis. Associated signs and symptoms: Pertinent positives: non-productive cough. Severity of symptoms: At their worst the symptoms were moderate this morning. Historical: - Allergies: 09:50 PENICILLINS; ww - PMHx: 09:50 Atrial Fib; CHF; COPD; Hyperlipidemia; Hypertension; staph infection in lungs; ww - Immunization history:: Adult Immunizations Client reports having NOT received the Covid vaccine. Pneumococcal vaccine is up to date, Flu vaccine is not up to date. - Social history:: Smoking status: Patient denies any tobacco usage or history of. - Family history:: not pertinent. - Code Status:: DNAR. ROS: 10:17 Constitutional: Negative for fever, chills, and weight loss, Eyes: Negative for injury, kylah pain, redness, and discharge, ENT: Negative for injury, pain, and discharge, Neck: Negative for injury, pain, and swelling, Cardiovascular: Negative for chest pain, palpitations, and edema, Abdomen/GI: Negative for abdominal pain, nausea, vomiting, diarrhea, and constipation, Back: Negative for injury and pain, : Negative for injury, bleeding, discharge, and swelling, MS/Extremity: Negative for injury and deformity, Skin: Negative for injury, rash, and discoloration, Neuro: Negative for headache, weakness, numbness, tingling, and seizure, Psych: Negative for depression, anxiety, suicide ideation, homicidal ideation, and hallucinations, Allergy/Immunology: Negative for hives, rash, and allergies, Endocrine: Negative for neck swelling, polydipsia, polyuria, polyphagia, and marked weight changes. 10:17 Respiratory: Positive for cough, "sounds productive", shortness of breath, at rest. Exam: 10:17 Constitutional: This is a well developed, well nourished patient who is awake, alert, kylah and in no acute distress. Head/Face: Normocephalic, atraumatic. Eyes: Pupils equal round and reactive to light, extra-ocular motions intact. Lids and lashes normal. Conjunctiva and sclera are non-icteric and not injected. Cornea within normal limits. Periorbital areas with no swelling, redness, or edema. Neck: Trachea midline, no thyromegaly or masses palpated, and no cervical lymphadenopathy. Supple, full range of motion without nuchal rigidity, or vertebral point tenderness. No Meningismus. Chest/axilla: Normal chest wall appearance and motion. Nontender with no deformity. No lesions are appreciated. Cardiovascular: Regular rate and rhythm with a normal S1 and S2. No gallops, murmurs, or rubs. Normal PMI, no JVD. No pulse deficits. Abdomen/GI: Soft, non-tender, with normal bowel sounds. No distension or tympany. No guarding or rebound. No evidence of tenderness throughout. Back: No spinal tenderness. No costovertebral tenderness. Full range of motion. Skin: Warm, dry with normal turgor. Normal color with no rashes, no lesions, and no evidence of cellulitis. MS/ Extremity: Pulses equal, no cyanosis. Neurovascular intact. Full, normal range of motion. Neuro: Awake and alert, GCS 15, oriented to person, place, time, and situation. Cranial nerves II-XII grossly intact. Motor strength 5/5 in all extremities. Sensory grossly intact. Cerebellar exam normal. Normal gait. Psych: Awake, alert, with orientation to person, place and time. Behavior, mood, and affect are within normal limits. 10:17 ENT: Mouth: Oral mucosa: dry, Gums: reddened, Tongue: is normal, Posterior pharynx: Airway: normal, no evidence of obstruction. 10:17 ECG was reviewed by the Attending Physician. Vital Signs: 09:45 BP 103 / 62; Pulse 71; Resp 25; Pulse Ox 94% on 3 lpm NC; ww 09:47 BP 98 / 60; Pulse 103; Resp 23; Temp 97.2(TE); Pulse Ox 98% on 3 lpm NC; Weight 72.57 ww kg (R); Height 5 ft. 9 in. (175.26 cm); Pain 0/10; 10:00 BP 115 / 65; Pulse 80; Resp 18; Pulse Ox 95% on 3 lpm NC; ww 11:37 BP 97 / 54; Pulse 90; Resp 12; Pulse Ox 100% on 4 lpm NC; ww 12:00 BP 95 / 58; Pulse 94; Resp 19 S; Pulse Ox 100% on 3 lpm NC; jg9 12:30 BP 104 / 73; Pulse 89; Resp 21 S; Pulse Ox 100% on R/A; jg9 13:15 BP 121 / 65; Pulse 91; Resp 16; Pulse Ox 97% on 3 lpm NC; jg9 14:07 BP 95 / 54; Pulse 83; Resp 16; Pulse Ox 100% on NC; ww 09:47 Body Mass Index 23.63 (72.57 kg, 175.26 cm) ww MDM: 09:24 Patient medically screened. kylah 10:29 Differential diagnosis: Anemia Bronchitis CHF exacerbation, Chronic Obstructive kylah Pulmonary Disease Myocardial Infarction pneumonia, pulmonary edema, reactive airway disease, Sepsis Unstable Angina. Antibiotic administration: merrem. Differential Diagnosis altered mental status, sepsis, flu. Differential Diagnosis: CVA, electrolyte abnormality, hypoglycemia, intracranial bleed, pneumonia, sepsis, TIA, UTI, volume depletion. The patient's Wells Deep Vein Thrombosis Score was calculated as follows: Total Score: 0-2 Pts- Low Risk. The patient's pulmonary embolism risk score was calculated as follows: Total Score: 0-2 points. This patient was found to be at low risk for a pulmonary embolism by using the Well's assessment criteria. Immunization status: Pneumococcal vaccine: Influenza vaccine: Data reviewed: vital signs, nurses notes, EMS record, lab test result(s), EKG, radiologic studies. 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 Test interpretation: by ED physician or midlevel provider: ECG, plain radiologic studies. Counseling: I had a detailed discussion with the patient and/or guardian regarding: the historical points, exam findings, and any diagnostic results supporting the discharge/admit diagnosis, lab results, radiology results, the need for further work-up and treatment in the hospital. 06/08 09:44 Order name: Urine Dipstick-Ancillary; Complete Time: 10:46 EDGA 06/08 09:50 Order name: Basic Metabolic Panel kylah 06/08 09:50 Order name: CBC with Diff kylah 06/08 09:50 Order name: LFT's; Complete Time: 10:51 06/08 09:50 Order name: Magnesium; Complete Time: 10:51 06/08 09:50 Order name: NT PRO-BNP; Complete Time: 10:51 06/08 09:50 Order name: PT-INR; Complete Time: 10:46 06/08 09:50 Order name: Troponin HS; Complete Time: 10:51 06/08 09:50 Order name: Lipase; Complete Time: 10:51 kylah 06/08 09:50 Order name: Urine Culture [facility] 06/08 09:50 Order name: COVID-19/FLU A+B/RSV (Document "Date of Onset" if Symptomatic) 06/08 09:50 Order name: Lactate; Complete Time: 10:46 kylah 06/08 09:50 Order name: Blood Culture Adult (2) 06/08 09:50 Order name: Basic Metabolic Panel; Complete Time: 10:51 EDGA 06/08 09:50 Order name: XRAY Chest (1 view); Complete Time: 11:09 06/08 09:50 Order name: EKG; Complete Time: 09:50 06/08 09:50 Order name: CT Head Brain wo Cont; Complete Time: 10:46 06/08 09:50 Order name: CBC with Automated Diff EDGA 06/08 12:30 Order name: CBC Smear Scan EDGA 06/08 09:50 Order name: Cardiac monitoring; Complete Time: 09:58 06/08 09:50 Order name: EKG - Nurse/Tech; Complete Time: 09:58 06/08 09:50 Order name: IV Saline Lock; Complete Time: 09:58 06/08 09:50 Order name: Labs collected and sent; Complete Time: 09:58 06/08 09:50 Order name: O2 Per Protocol; Complete Time: 09:58 [facility] 06/08 09:50 Order name: O2 Sat Monitoring; Complete Time: 09:58 [facility] 06/08 09:50 Order name: Urine Dipstick-Ancillary (obtain specimen); Complete Time: 09:58 [facility] 06/08 10:11 Order name: Wound Care: left tib fib; Complete Time: 11:31 kylah EC:17 Rate is 100 beats/min. Rhythm is irregularly irregular. QRS [place] is Normal. [place] interval kylah is normal. QRS interval is normal. No Q waves. T waves are Normal. No ST changes noted. Clinical impression: Atrial Fibrillation and No evidence of ischemia. Interpreted by me. Reviewed by me. Administered Medications: 10:07 Drug: NS 0.9% 1000 ml Route: IV; Rate: 1 bolus; Site: left antecubital; ww 11:10 Follow up: IV Status: Completed infusion; IV Intake: 1000ml 9 10:07 Drug: Rocephin (cefTRIAXone) 1 grams Route: IV; Rate: per protocol; Site: left ww antecubital; 10:50 Drug: SOLU-Medrol (methylPrednisoLONE) 125 mg Route: IVP; Site: right antecubital; ww 13:30 Follow up: Response: No adverse reaction j9 10:54 Drug: Xopenex (levalbuterol) 2.5 mg Route: Inhalation; ww 13:30 Follow up: Response: No adverse reaction j9 10:54 Drug: Pepcid (famotidine) 20 mg Route: IVP; Site: left antecubital; ww 11:03 Not Given (Duplicate Order): Atropine 0.5 mg IVP once [facility] 11:10 Drug: foLIC Acid 1 mg Route: IVPB; Site: right antecubital; ww 13:30 Follow up: Response: No adverse reaction j9 11:13 Drug: Thiamine 100 mg Route: IV; Rate: bolus; Site: right antecubital; ww 13:30 Follow up: IV Status: Completed infusion j9 11:13 Drug: AtroVENT (ipratropium) Aerosol 0.5 mg Route: Inhalation; ww 11:35 Drug: Tetanus-Diphtheria Toxoid Adult 0.5 ml {Schedule Checker: [employer]. Exp: jg9 10/05/2021. Lot #: [id number]. } Route: IM; Site: right deltoid; 11:40 Drug: Lovenox (enoxaparin) 40 mg Route: Sub-Q; Site: right lower abdomen; jg9 Disposition Summary: 06/08/21 10:51 Hospitalization Ordered Hospitalization Status: Inpatient Admission kylah Provider: Reynold Mohan cha Location: Telemetry/MedSurg (Inpatient) kylah Condition: Stable kylah Problem: new kylah Symptoms: have improved kylah Bed/Room Type: Standard kylah Room Assignment: 205(06/08/21 12:53) eb Diagnosis - Dehydration kylah - Dyspnea kylah - COPD/ Chronic obstructive pulmonary disease with (acute) exacerbation kylah - Altered mental status, unspecified kylah - Weakness kylah - Acute kidney failure, unspecified - on chronic kylah - Chronic atrial fibrillation 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
--- NOTE | 2021-06-08 10:56 | RAD REPORT ---
EXAM DESCRIPTION: RAD - Chest Single View - 06/08/2021 10:46 am CLINICAL HISTORY: COUGH COMPARISON: Chest Single View dated 12/12/2020; Chest Single View dated 12/08/2020; Chest Single View dated 12/08/2020; Chest Single View dated 10/27/2020 FINDINGS: Lines: None. Lungs: No evidence of edema or pneumonia. Pleural: No significant pleural effusions or pneumothorax. Cardiac: The heart size is within normal limits. Atherosclerosis . Bones: No acute fractures. Other: IMPRESSION: No acute cardiopulmonary disease.
[2021-06-08] MEDS ORDERED: IPRATROPIUM BROM 0.5MG/2.5ML ONE (11:08)
[2021-06-08] MEDS ORDERED: FOLIC ACID 5 MG/ML VIAL ONE (11:11)
[2021-06-08] MEDS ORDERED: ENOXAPARIN 40 MG/0.4 ML SQ ONE (11:35)
[2021-06-08 11:36] LABS: SARS-COV-2 RT PCR NEGATIVE (NEGATIVE)
[2021-06-08 12:30] LABS: Anisocytosis 1+; Blood Morphology Comment NOTED (NOT SEEN); Platelet Estimate ADEQ; Polychromasia SLIGHT; White Blood Cell Scan OK (OK)
--- NOTE | 2021-06-08 12:54 | P.HP ---
Certification for Inpatient Patient admitted to: Inpatient With expected LOS: >2 Midnights Practitioner: I am a practitioner with admitting privileges, knowledge of patient current condition, hospital course, and medical plan of care. Services: Services provided to patient in accordance with Admission requirements found in Title 42 Section 412.3 of the Code of Federal Regulations Patient History Date of Service: 06/08/21 Reason for admission: Altered mental status History of Present Illness: 70-year-old gentleman with a history of COPD, A. fib, hypertension was brought to the emergency department due to altered mental status. Patient could not provide any history. Spouse reports patient became progressively drowsy over the last few days but will respond appropriately. This morning patient's mental status got worse, to the point he was not obeying commands. Spouse reports decreased oral intake over the past few days. No fever reported, no diarrhea, no report of cough or difficulty breathing. His blood pressure was soft in the ED with systolic in the 90s, blood work shows acute renal failure, troponin slightly elevated, chest x-ray unremarkable, head CT unremarkable. UA shows no significant evidence of UTI. Patient is hospitalized for further management. Allergies Penicillins Allergy (Verified 12/08/20 06:26) Itching Home Medications: Amlodipine [Norvasc*] 5 mg PO DAILY 10/02/14 Budesonide/Formoterol Fumarate [Symbicort 160-4.5 Mcg Inhaler] 1 puff IH BID 10/02/14 Lovastatin 20 mg PO DAILY 10/08/16 Carvedilol [Coreg] 25 mg PO BID #60 tablet 10/10/16 Albuterol Neb [Proventil 0.083% Neb Soln] 2.5 mg NEB [id number] PRN #120 amp 10/10/20 Benzonatate [Tessalon Perle*] 100 mg PO TID PRN #30 cap 10/10/20 Ensure Enlive 237 ml PO BID #60 can 10/10/20 Nebulizer [Aeroneb Go Nebulizer] 1 each MC QID #1 each 10/10/20 Spironolactone [Aldactone*] 25 mg PO DAILY 30 Days #30 tab 10/10/20 Citalopram Hydrobromide [Citalopram HBr] 20 mg PO DAILY 12/08/20 predniSONE [Prednisone*] 1 tab PO DAILY 12/08/20 Pantoprazole [Protonix Tab*] 40 mg PO BIDAC tab 12/12/20 Warfarin Sodium [Coumadin*] 3 mg PO DAILY 5 PM #0 tab 12/12/20 - Past Medical/Surgical History Diabetic: No -: COPD -: History of AFib -: CHF -: HTN -: HYPERLIPIDEMIA -: R REPAIR TO LEG - Family History Father -: Heart disease, Hypertension Notes: FROM [place] Mother -: Lung disease Notes: COPD - Social History Alcohol use: Yes CD- Drugs: No Caffeine use: Yes Review of Systems Other: Except as documented, all other systems reviewed and negative. Physical Examination - Physical Exam General: In no apparent distress, Confused HEENT: PERRLA, Other (Dry oral mucosa), EOMI Neck: Supple, JVD not distended Respiratory: Clear to auscultation bilaterally, Normal air movement Cardiovascular: No edema, Regular rate/rhythm, Normal S1 S2 Gastrointestinal: Normal bowel sounds, Soft and benign, Non-distended, No tenderness Musculoskeletal: No swelling Integumentary: Other (Skin tear-left han-dressed. Bilateral lower extremity venous stasis dermatitis) Neurological: Other (Moves all extremities spontaneously.) Lymphatics: No axilla or inguinal lymphadenopathy - Studies Laboratory Data (last 24 hrs) 06/08/21 09:45: PT 19.2 H, INR 1.66 06/08/21 09:45: WBC 13.20 H, Hgb 11.6 L, Hct 37.0 L, Plt Count 204 06/08/21 09:45: Sodium 140, Potassium 3.8, BUN 63 H, Creatinine 2.01 H, Glucose 113 H, Magnesium 3.3 H D, Total Bilirubin 0.6, AST 110 H, ALT 102 H, Alkaline Phosphatase 64, Lipase 196 Assessment and Plan - Problems (Diagnosis) (1) Acute metabolic encephalopathy Current Visit: Yes Status: Acute (2) MARELY (acute kidney injury) Current Visit: No Status: Acute (3) Chronic atrial fibrillation Current Visit: No Status: Acute (4) COPD (chronic obstructive pulmonary disease) Onset Date: 11/04/16 Current Visit: No Status: Chronic Qualifiers: COPD type: chronic bronchitis Chronic bronchitis type: simple Qualified Code(s): J41.0 - Simple chronic bronchitis (5) Elevated troponin Current Visit: Yes Status: Acute - Plan AMS likely secondary to dehydration. Infection not ruled out. UA negative. Chest x-ray: No acute disease. Admit to the medical floor. Hydrate with IV normal saline. Start empiric antibiotics-IV Azactam and vancomycin. Spouse reports patient has severe arthritis with Levaquin. There was also reported allergy to penicillin. Troponin elevation likely secondary to demand ischemia. Continue to trend troponin. Bronchodilators for COPD. Hold antihypertensives due to soft blood pressure. Follow cultures. - Advance Directives Does patient have a Living Will: Yes Does patient have a Durable POA for Healthcare: No
[2021-06-08] MEDS ORDERED: ONDANSETRON 4 MG/2 ML VIAL IV PRN (14:24)
[2021-06-08] MEDS ORDERED: ACETAMINOPHEN 500 MG TAB PO PRN (14:24)
[2021-06-08] MEDS: Levofloxacin 750mg IV 750 MG/150 ML BAG IV SCH ×2 (15:00→15:09)
[2021-06-08] MEDS: NA CHLORIDE 0.9% 1,000 ML IV SCH (15:10)
[2021-06-08 16:19] VITALS: BMI 23.6
[2021-06-08] MEDS ORDERED: VANCOMYCIN 1 GM in NA CHLORIDE 0.9% 250 ML IVPB SCH (17:00)
[2021-06-08] MEDS: AZTREONAM 1 GM/VIAL IV SCH (17:00)
[2021-06-08] MEDS ORDERED: VANCOMYCIN 2 GM in NA CHLORIDE 0.9% 500 ML IVPB ONE (17:00)
[2021-06-08] MEDS ORDERED: VANCOMYCIN 1 GM/VIAL ONE (17:40)
[2021-06-08] MEDS ORDERED: NA CHLORIDE 0.9% 500 ML ONE (17:41)
[2021-06-08] MEDS: HEPARIN 5000 UNIT/ML 1 ML VIAL SQ SCH (18:18)
[2021-06-08] MEDS ORDERED: VANCOMYCIN 2 GM in NA CHLORIDE 0.9% 500 ML IVPB SCH (21:00)
[2021-06-09] MEDS: NA CHLORIDE 0.9% 1,000 ML IV SCH ×5 (00:24→20:24)
[2021-06-09] MEDS: HEPARIN 5000 UNIT/ML 1 ML VIAL SQ SCH ×3 (00:44→17:28)
[2021-06-09] MEDS ORDERED: AZTREONAM 1 GM/VIAL ONE (01:18)
[2021-06-09] MEDS ORDERED: NA CHLORIDE 0.9% 50 ML ONE (01:26)
[2021-06-09] MEDS: AZTREONAM 1 GM/VIAL IV SCH ×2 (01:29→09:00)
[2021-06-09] MEDS: ALBUTEROL 2.5 MG/3 ML NEB SOL NEB PRN (03:10)
[2021-06-09] MEDS: IPRATROPIUM BROM 0.5MG/2.5ML NEB PRN (03:10)
[2021-06-09 06:27] LABS: Absolute Lymphocytes (CBC) 0.1 K/uL (0.7-4.9); Hematocrit 33.6 % (39.6-49.0); Lymphocytes % 1.6 % (15.3-44.8); MPV 8.7 fL (7.6-11.3); RBC Red Blood Cell Count 3.49 M/uL (4.33-5.43)
[2021-06-09 07:01] LABS: Albumin 2.6 g/dL (3.4-5.0); Bilirubin Total 0.5 mg/dL (0.2-1.0); Magnesium 2.4 mg/dL (1.8-2.4); Phosphorus 2.3 mg/dL (2.5-4.9); Potassium 3.3 mmol/L (3.5-5.1); Protein, Total 6.2 g/dL (6.4-8.2); Thyroid Stimulating Hormone 1.94 uIU/mL (0.360-3.740)
[2021-06-09] MEDS ORDERED: POTASSIUM CL SA 10 MEQ TAB PO ONE (09:00)
[2021-06-09] MEDS: POTASS/SODIUM PHOSPHATE 1 PKT POWD.PACK PO SCH (09:44)
--- NOTE | 2021-06-09 12:24 | P.PN ---
Subjective Date of Service: 06/09/21 Chief Complaint: Altered mental status Patient is more awake and interactive today though still confused. No fever. He denies any chest pain. Physical Examination - Vital Signs Temperature: 98.1 F Blood Pressure: 137/60 Pulse: 97 Respirations: 22 Pulse Ox (%): 91 - Physical Exam General: In no apparent distress, Other (Awake) HEENT: Mucous membr. moist/pink Neck: JVD not distended Respiratory: Clear to auscultation bilaterally, Normal air movement Cardiovascular: No edema, Regular rate/rhythm, Normal S1 S2 Gastrointestinal: Normal bowel sounds, Soft and benign, Non-distended Musculoskeletal: No swelling Integumentary: Other (Left han skin tear. Bilateral venous stasis dermatitis of lower extremities) Neurological: Other (No focal motor deficits) - Studies Laboratory Data (last 24 hrs) 06/08/21 09:45: WBC 13.20 H, Hgb 11.6 L, Hct 37.0 L, Plt Count 204 Assessment And Plan - Current Problems (Diagnosis) (1) Acute metabolic encephalopathy Current Visit: Yes Status: Acute (2) MARELY (acute kidney injury) Current Visit: No Status: Acute (3) Chronic atrial fibrillation Current Visit: No Status: Acute (4) COPD (chronic obstructive pulmonary disease) Onset Date: 11/04/16 Current Visit: No Status: Chronic Qualifiers: COPD type: chronic bronchitis Chronic bronchitis type: simple Qualified Code(s): J41.0 - Simple chronic bronchitis (5) Elevated troponin Current Visit: Yes Status: Acute - Plan AMS likely secondary to dehydration. AMS significantly improved. UA negative. Chest x-ray: No acute disease. Continue IV hydration with IV normal saline. Blood cultures negative. Continue antibiotics until no growth for 48 hours. Patient is more awake and interactive and responding to treatment. MARELY resolved. Troponin elevation likely secondary to demand ischemia. Bronchodilators for COPD. Blood pressure is stable. Continue to hold antihypertensives. PT evaluation
[2021-06-09] MEDS: CEFEPIME 2 GM in NA CHLORIDE 0.9% 100 ML IV SCH ×2 (13:46→21:47)
[2021-06-09] MEDS ORDERED: VANCOMYCIN 1.25 GM in NA CHLORIDE 0.9% 250 ML IVPB SCH ×4 (18:00)
[2021-06-10] MEDS: HEPARIN 5000 UNIT/ML 1 ML VIAL SQ SCH ×2 (00:40→09:24)
[2021-06-10] MEDS: NA CHLORIDE 0.9% 1,000 ML IV SCH ×2 (03:21→06:24)
[2021-06-10 04:50] LABS: Potassium 4.6 mmol/L (3.5-5.1)
[2021-06-10] MEDS ORDERED: VANCOMYCIN 1.25 GM in NA CHLORIDE 0.9% 250 ML IVPB SCH (05:00)
[2021-06-10] MEDS: IPRATROPIUM BROM 0.5MG/2.5ML NEB PRN (05:48)
[2021-06-10] MEDS: ALBUTEROL 2.5 MG/3 ML NEB SOL NEB PRN (05:48)
[2021-06-10] MEDS: CEFEPIME 2 GM in NA CHLORIDE 0.9% 100 ML IV SCH (09:24)
--- NOTE | 2021-06-10 12:51 | P.CNS ---
Date of Consult: 06/10/21 Reason for Consult: Altered mental status history of COPD CHF Chief Complaint: Altered mental status History of Present Illness: Patient is 68 years of age with a history of COPD metabolic syndrome atrial fibrillation CHF present at the bedside apparently has been experiencing altered mental status delusions and hallucinations for the past 3 months has been no change in his medication. Very weak/apparently he wants to go skydiving/no recent change in medication Allergies Penicillins Allergy (Verified 12/08/20 06:26) Itching Home Medications: Amlodipine [Norvasc*] 5 mg PO DAILY 10/02/14 Budesonide/Formoterol Fumarate [Symbicort 160-4.5 Mcg Inhaler] 1 puff IH BID 10/02/14 Lovastatin 20 mg PO DAILY 10/08/16 Carvedilol [Coreg] 25 mg PO BID #60 tablet 10/10/16 Albuterol Neb [Proventil 0.083% Neb Soln] 2.5 mg NEB [id number] PRN #120 amp 10/10/20 Benzonatate [Tessalon Perle*] 100 mg PO TID PRN #30 cap 10/10/20 Ensure Enlive 237 ml PO BID #60 can 10/10/20 Nebulizer [Aeroneb Go Nebulizer] 1 each MC QID #1 each 10/10/20 Spironolactone [Aldactone*] 25 mg PO DAILY 30 Days #30 tab 10/10/20 Citalopram Hydrobromide [Citalopram HBr] 20 mg PO DAILY 12/08/20 predniSONE [Prednisone*] 1 tab PO DAILY 12/08/20 Pantoprazole [Protonix Tab*] 40 mg PO BIDAC tab 12/12/20 Warfarin Sodium [Coumadin*] 5 mg PO DAILY 5 PM 06/08/21 - Past Medical/Surgical History Diabetic: No -: COPD -: History of AFib -: CHF -: HTN -: HYPERLIPIDEMIA -: R REPAIR TO LEG - Family History Father Medical History: Heart disease, Hypertension Notes: FROM [place] Mother Medical History: Lung disease Notes: COPD - Social History Smoking Status: Unknown if ever smoked Alcohol use: Yes CD- Drugs: No Caffeine use: Yes Place of Residence: Home Review of Systems 10-point ROS is otherwise unremarkable General: Weakness Physical Examination Temp Pulse Resp BP Pulse Ox 97.1 F 103 H 24 H 140/81 94 06/10/21 08:00 06/10/21 08:00 06/10/21 08:00 06/10/21 08:00 06/10/21 08:00 General: Alert, Oriented x2 Neck: Supple Respiratory: Clear to auscultation bilaterally, Diminished Cardiovascular: No edema, Irregular heart rate/rhythm Gastrointestinal: Normal bowel sounds, Soft and benign - Problems (1) Altered mental status Current Visit: Yes Status: Acute Plan: Patient is 71 years of age admitted with altered mental status he is a history of COPD CHF atrial fibrillation very stable and compliant has been gotten worse of the past 3 months experiencing some delusions and hallucinations very weak barely able to walk to the bathroom he is renal function has improved he may be volume depleted TSH is normal avoid diuretics DC normal saline DC antibiotic no evidence of sepsis we will increase the dose of steroid as been taking prednisone 5 mg daily resume warfarin physical therapy echocardiogram with Doppler thiamine p.o.
[2021-06-10] MEDS: predniSONE 20 MG TAB PO SCH ×2 (13:30→20:06)
--- NOTE | 2021-06-10 14:22 | P.PN ---
Subjective Date of Service: 06/10/21 Chief Complaint: Altered mental status Patient states he feels much better. Noted he has pursed lip breathing. No fever. Physical Examination - Vital Signs Temperature: 97.7 F Blood Pressure: 140/70 Pulse: 87 Respirations: 22 Pulse Ox (%): 91 - Physical Exam General: Alert, In no apparent distress HEENT: Mucous membr. moist/pink Neck: JVD not distended Respiratory: Diminished (Bilateral), Other (No crackles) Cardiovascular: Normal S1 S2, Edema, Irregular heart rate/rhythm Gastrointestinal: Soft and benign, Non-distended, No tenderness Musculoskeletal: No swelling, No tenderness Integumentary: No cyanosis, Other (Bilateral venous stasis dermatitis) Neurological: Normal speech, Other (Moves all extremities spontaneously.) - Studies Microbiology Data (last 24 hrs): 06/08/21 09:45 Clean Catch Urine [place] Count - Final No growth. 06/08/21 09:45 Clean Catch Urine - Final No growth. Assessment And Plan - Current Problems (Diagnosis) (1) Acute metabolic encephalopathy Current Visit: Yes Status: Acute (2) MARELY (acute kidney injury) Current Visit: No Status: Acute (3) Chronic atrial fibrillation Current Visit: No Status: Acute (4) Elevated troponin Current Visit: Yes Status: Acute (5) COPD exacerbation Onset Date: 10/03/14 Current Visit: No Status: Acute - Plan AMS likely secondary to dehydration. AMS resolved UA negative. Chest x-ray: No acute disease. MARELY resolved. Discontinue IV fluid. Diet as tolerated. Blood cultures negative. Discontinue antibiotics. Troponin elevation likely secondary to demand ischemia. Bronchodilators for COPD. Patient started on oral prednisone Blood pressure is stable. Resume antihypertensives. Echocardiogram requested. PT. Dr. Lay's input appreciated.
[2021-06-10] MEDS: WARFARIN SODIUM 5 MG TAB PO SCH (16:42)
[2021-06-10] MEDS: PANTOPRAZOLE 40MG TABLET PO SCH (16:42)
[2021-06-10] MEDS: THIAMINE HCL 100 MG TABLET PO SCH (20:06)
[2021-06-10] MEDS: ATORVASTATIN 10 MG TAB PO SCH (20:06)
[2021-06-10] MEDS: ENSURE ENLIVE 237 ML CAN PO SCH (20:07)
[2021-06-10] MEDS: HOME MED 1 EA UNK (Budesonide/Formoterol Fumarate [Symbicort 160-4.5 Mcg Inhaler] 10.2 GM IH SCH (20:08)
[2021-06-10] MEDS: carvediloL 25 MG TAB PO SCH (20:09)
[2021-06-11 04:06] LABS: Absolute Lymphocytes (CBC) 0.1 K/uL (0.7-4.9); Lymphocytes % 2.1 % (15.3-44.8); RBC Red Blood Cell Count 3.68 M/uL (4.33-5.43)
[2021-06-11 04:24] LABS: Potassium 4.8 mmol/L (3.5-5.1)
--- NOTE | 2021-06-11 06:16 | P.PN ---
Date of Service: 06/11/21 Subjective: Feels this is improving, baseline oxygen requirement Still with some shortness of breath/tachypnea No new symptoms/complaints this morning ROS: 10 point ROS as noted above, otherwise negative Physical exam GEN: Alert, orientedx2, slight confusion HEENT: Normal conjunctiva, sclera anicteric CV: Regular rate and rhythm, no edema Pulm: Tachypneic, nonlabored respirations on 4 L nasal cannula ABD: Soft, nontender, nondistended Neuro: Normal speech, normal affect Problem List Acute metabolic encephalopathy COPD exacerbation, acute on chronic MARELY Chronic atrial fibrillation, on coumadin Elevated troponin h/o GI bleed / LGI mass AMS likely secondary to dehydration, resolved. Does have some mild confusion, likely baseline dementia UA negative, CXR: No acute disease MARELY resolved with IV fluids Blood culture remain negative, antibiotics were discontinued yesterday Improving with prednisone for treatment of acute COPD exacerbation Pulmonology following, ordered echocardiogram Continue PT requested SNF on discharge VTE: coumadin Code: full Dispo: SNF in 1-2 days Time Spent Managing Pts Care (In Minutes): 35
[2021-06-11 08:02] LABS: Protime INR 1.34
[2021-06-11] MEDS: IPRATROPIUM BROM 0.5MG/2.5ML NEB PRN ×3 (08:46→19:50)
[2021-06-11] MEDS: ALBUTEROL 2.5 MG/3 ML NEB SOL NEB PRN ×3 (08:46→19:50)
[2021-06-11] MEDS ORDERED: HOME MED 1 EA UNK (Lovastatin [Lovastatin] 20 MG Tablet) PO SCH (09:00)
[2021-06-11] MEDS: ENSURE ENLIVE 237 ML CAN PO SCH ×2 (09:00→21:00)
[2021-06-11] MEDS: HOME MED 1 EA UNK (Budesonide/Formoterol Fumarate [Symbicort 160-4.5 Mcg Inhaler] 10.2 GM IH SCH ×2 (09:00→21:00)
[2021-06-11] MEDS: PANTOPRAZOLE 40MG TABLET PO SCH ×2 (09:41→17:37)
[2021-06-11] MEDS: carvediloL 25 MG TAB PO SCH ×2 (09:42→21:18)
[2021-06-11] MEDS: AMLODIPINE 5 MG TAB PO SCH (09:42)
[2021-06-11] MEDS: SPIRONOLACTONE 25 MG TABLET PO SCH (09:42)
[2021-06-11] MEDS: CITALOPRAM 10 MG TABLET PO SCH (09:42)
[2021-06-11] MEDS: THIAMINE HCL 100 MG TABLET PO SCH ×2 (09:43→21:18)
[2021-06-11] MEDS: predniSONE 10 MG TAB PO SCH ×2 (09:43→21:18)
--- NOTE | 2021-06-11 12:21 | P.PN ---
Subjective Date of Service: 06/11/21 Chief Complaint: Altered mental status Subjective: Improving (Patient is more alert responsive) Review of Systems General: Weakness Respiratory: Shortness of Breath Physical Examination - Vital Signs Temperature: 96.9 F Blood Pressure: 136/72 Pulse: 82 Respirations: 23 Pulse Ox (%): 98 - Physical Exam General: Alert, In no apparent distress, Oriented x3 Neck: Supple Respiratory: Clear to auscultation bilaterally Cardiovascular: No edema, Regular rate/rhythm - Studies Microbiology Data (last 24 hrs): 06/08/21 09:45 Clean Catch Urine [place] Count - Final No growth. 06/08/21 09:45 Clean Catch Urine - Final No growth. Assessment & Plan - Problems (Diagnosis) (1) Depression Current Visit: Yes Status: Acute Plan: I suspect that the patient has underlying severe depression start on an antidepressant labs reviewed TSH and vitamin B12 level are normal no evidence of sepsis blood cultures likely contaminant physical therapy ambulate reduce dose of prednisone Qualifiers: Depression Type: major depressive disorder
[2021-06-11] MEDS: WARFARIN SODIUM 5 MG TAB PO SCH (17:36)
[2021-06-11] MEDS ORDERED: LORAZEPAM 0.5 MG TABLET PO SCH (18:00)
[2021-06-11] MEDS: ATORVASTATIN 10 MG TAB PO SCH (21:18)
[2021-06-12] MEDS: IPRATROPIUM BROM 0.5MG/2.5ML NEB PRN (02:55)
[2021-06-12] MEDS: ALBUTEROL 2.5 MG/3 ML NEB SOL NEB PRN (02:55)
[2021-06-12 04:59] LABS: Absolute Lymphocytes (CBC) 0.2 K/uL (0.7-4.9); Hematocrit 34.8 % (39.6-49.0); Lymphocytes % 3.1 % (15.3-44.8); MPV 8.7 fL (7.6-11.3); RBC Red Blood Cell Count 3.54 M/uL (4.33-5.43)
[2021-06-12 05:09] LABS: BUN Blood Urea Nitrogen 29 mg/dL (7-18); Bicarbonate 35 mmol/L (21-32); Glucose Level 112 mg/dL (74-106); Potassium 4.9 mmol/L (3.5-5.1); Sodium Level 141 mmol/L (136-145)
--- NOTE | 2021-06-12 08:30 | ECHO ---
HEIGHT: 5 ft 9 in WEIGHT: 160 lb 0 oz DATE OF STUDY: 06/11/[address]: Mian Lay MD 2-DIMENSIONAL: YES M.MODE: YES DOPPLER: YES COLOR FLOW: YES TDS: NO PORTABLE: NO DEFINITY: NO BUBBLE STUDY: NO DIAGNOSIS: CHEST PAIN CARDIAC HISTORY: CATHERIZATION: SURGERY: PROSTHETIC VALVE: PACEMAKER: MEASUREMENTS (cm) DIASTOLIC (NORMALS) SYSTOLIC (NORMALS) IVSd 1.0 (0.6-1.2) LA Diam (1.9-4.0) LVEF 74% LVIDd 3.5 (3.5-5.7) LVIDs 2.0 (2.0-3.5) %FS 42% LVPWd 1.1 (0.6-1.2) Ao Diam 2.9 (2.0-3.7) 2 DIMENSIONAL ASSESSMENT: RIGHT ATRIUM: NORMAL LEFT ATRIUM: NORMAL RIGHT VENTRICLE: NORMAL LEFT VENTRICLE: NORMAL TRICUSPID VALVE: NORMAL MITRAL VALVE: NORMAL PULMONIC VALVE: NORMAL AORTIC VALVE: NORMAL PERICARDIAL EFFUSION: NONE AORTIC ROOT: NORMAL LEFT VENTRICULAR WALL MOTION: NORMAL. DOPPLER/COLOR FLOW: MILD TRICUSPID REGURGITATION. COMMENTS: TECHNICALLY DIFFICULT STUDY. PARADOXICAL SEPTUM. NORMAL EJECTION FRACTION. NO EFFUSION. MILD TRICUSPID REGURGITATION WITH NORMAL RIGHT VENTRICULAR SYSTOLIC PRESSURE. TECHNOLOGIST: ASHER MASON
[2021-06-12] MEDS: HOME MED 1 EA UNK (Budesonide/Formoterol Fumarate [Symbicort 160-4.5 Mcg Inhaler] 10.2 GM IH SCH (09:00)
[2021-06-12] MEDS: ENSURE ENLIVE 237 ML CAN PO SCH (09:00)
[2021-06-12 09:11] LABS: Blood Morphology Comment NOTED (NOT SEEN); Platelet Estimate ADEQ
[2021-06-12 09:12] LABS: Basophilic Stippling 1+
[2021-06-12] MEDS: AMLODIPINE 5 MG TAB PO SCH (10:14)
[2021-06-12] MEDS: predniSONE 10 MG TAB PO SCH (10:14)
[2021-06-12] MEDS: carvediloL 25 MG TAB PO SCH (10:14)
[2021-06-12] MEDS: PANTOPRAZOLE 40MG TABLET PO SCH (10:15)
[2021-06-12] MEDS: SPIRONOLACTONE 25 MG TABLET PO SCH (10:15)
[2021-06-12] MEDS: CITALOPRAM 10 MG TABLET PO SCH (10:16)
[2021-06-12] MEDS: THIAMINE HCL 100 MG TABLET PO SCH (10:16)
[2021-06-12 13:57] VITALS: BP 149/63; TEMP 98.4
[2021-06-12 16:24] LABS: Protime INR 1.64
[2021-06-12 17:29] VITALS: O2SAT 95
--- NOTE | 2021-06-12 20:46 | P.DS ---
Admission Date: 06/08/21 Discharge Date: 06/12/21 Disposition: TRANSFER TO SNF - MEDICAL Discharge Condition: GOOD Reason for Admission: Altered mental status Consultations: Pulmonology - Dr. Lay Procedures: CXR (06/08): IMPRESSION: No acute cardiopulmonary disease. CT Head (06/08): FINDINGS: No intracranial hemorrhage, hydrocephalus or extra-axial fluid collec tion.No areas of brain edema or evidence of midline shift. Cerebral atrophy. Intracranial atherosclerosis. Right mastoid fluid. Near complete opacification of the right maxillary sinus. IMPRESSION: No acute intracranial abnormality. Echo (06/11): Normal EF: 74%. No effusion mild TR with normal RV systolic pressure Technically difficult study. paradoxical septum Problem List Acute metabolic encephalopathy COPD exacerbation, acute on chronic MARELY Chronic atrial fibrillation, on coumadin Elevated troponin h/o GI bleed / LGI mass Brief History of Present Illness: 70-year-old gentleman with a history of COPD, A. fib, hypertension was brought to the emergency department due to altered mental status. Patient could not provide any history. Spouse reports patient became progressively drowsy over the last few days but will respond appropriately. This morning patient's mental status got worse, to the point he was not obeying commands. Spouse reports decreased oral intake over the past few days. No fever reported, no diarrhea, no report of cough or difficulty breathing. His blood pressure was soft in the ED with systolic in the 90s, blood work shows acute renal failure, troponin slightly elevated, chest x-ray unremarkable, head CT unremarkable. UA shows no significant evidence of UTI. Patient is hospitalized for further management. Hospital Course: Patient had moderate improvement of his symptoms after treatment with steroid use, oxygen supplementation. Pulmonology was consulted and patient had gradual improvement down to his home O2 requriement.. He was noted to have significant debility / generalized weakness. PT was consulted and recommended further assisatnce with PT/ST. Cardiology was consulted clinical course sensitivie Patient's requested SNF for continuing PT AMS was felt to be secondary to dehydration Vital Signs/Physical Exam: Physical exam GEN: Alert, orientedx2, slight confusion HEENT: Normal conjunctiva, sclera anicteric CV: Regular rate and rhythm, no edema Pulm: Tachypneic, nonlabored respirations on 1 L nasal cannula ABD: Soft, nontender, nondistended Neuro: Normal speech, normal affect Temp Pulse Resp BP Pulse Ox 98.4 F 83 20 149/63 H 95 06/12/21 12:00 06/12/21 12:00 06/12/21 12:00 06/12/21 12:00 06/12/21 12:00 Laboratory Data at Discharge: WBC 5.90 K/uL (4.3-10.9) 06/12/21 04:44 Hgb 10.9 g/dL (13.6-17.9) L 06/12/21 04:44 Hct 34.8 % (39.6-49.0) L 06/12/21 04:44 Plt Count 105 K/uL (152-406) L 06/12/21 04:44 PT 19.0 SECONDS (9.5-12.5) H 06/12/21 15:43 INR 1.64 06/12/21 15:43 Sodium 141 mmol/L (136-145) 06/12/21 04:44 Potassium 4.9 mmol/L (3.5-5.1) 06/12/21 04:44 BUN 29 mg/dL (7-18) H 06/12/21 04:44 Creatinine 0.82 mg/dL (0.55-1.3) 06/12/21 04:44 Glucose 112 mg/dL (74-106) H 06/12/21 04:44 Phosphorus 4.0 mg/dL (2.5-4.9) D 06/10/21 04:02 Magnesium 2.4 mg/dL (1.8-2.4) D 06/09/21 05:37 Total Bilirubin 0.5 mg/dL (0.2-1.0) 06/09/21 05:37 AST 75 U/L (15-37) H 06/09/21 05:37 ALT 97 U/L (12-78) H 06/09/21 05:37 Alkaline Phosphatase 56 U/L (45-117) 06/09/21 05:37 Lipase 196 U/L (73-393) 06/08/21 09:45 Home Medications: Amlodipine [Norvasc*] 5 mg PO DAILY 10/02/14 Budesonide/Formoterol Fumarate [Symbicort 160-4.5 Mcg Inhaler] 1 puff IH BID 10/02/14 Lovastatin 20 mg PO DAILY 10/08/16 Carvedilol [Coreg] 25 mg PO BID #60 tablet 10/10/16 Albuterol Neb [Proventil 0.083% Neb Soln] 2.5 mg NEB [id number] PRN #120 amp 10/10/20 Ensure Enlive 237 ml PO BID #60 can 10/10/20 Nebulizer [Aeroneb Go Nebulizer] 1 each QID #1 each 10/10/20 Spironolactone [Aldactone*] 25 mg PO DAILY 30 Days #30 tab 10/10/20 Citalopram Hydrobromide [Citalopram HBr] 20 mg PO DAILY 12/08/20 predniSONE [Prednisone*] 1 tab PO DAILY 12/08/20 Pantoprazole [Protonix Tab*] 40 mg PO BIDAC tab 12/12/20 Warfarin Sodium [Coumadin*] 5 mg PO DAILY 5 PM 06/08/21 predniSONE [Deltasone*] 10 mg PO BID tab 06/12/21 Physician Discharge Instructions: PROBLEM: Altered mental status, COPD Exacerbation GOAL: Clear understanding of disease process INSTRUCTIONS: Ok to discharge to [facility] Continue home medications Contact physician or return to ER for any complications or concerns Call [phone] for any questions regarding hospital stay Diet: As tolerated Activity: As tolerated [employer] Services Needed: Care Home [facility] [phone] Name of Company: 06/10/21 Date or Referral: 06/10/21 IMMUNIZATION Influenza Vaccine Indicated: Influenza Vaccine Given: Date Given: Pneumonia Vaccine Indicated: Pneumonia Vaccine Given: Date Given: Followup: Mian Lay MD [Primary Care Provider] - (Call to schedule appointment) Time spent managing pt's care (in minutes): 45
== END 2021-06-12 16:00 | DRG 640 ==
LOC: ER 09:12 → ERHOLD 12:40 → 2ND 14:24
PROVIDERS: ADMIT Internal Medicine; ATTEND Hospitalist
DX: E86.0 Dehydration (principal); G93.41 Metabolic encephalopathy; N17.9 Acute kidney failure, unspecified; J44.1 Chronic obstructive pulmonary disease with (acute) exacerbation; I48.20 Chronic atrial fibrillation, unspecified; E78.5 Hyperlipidemia, unspecified; F32.9 Major depressive disorder, single episode, unspecified; I10 Essential (primary) hypertension; M19.90 Unspecified osteoarthritis, unspecified site; R77.8 Other specified abnormalities of plasma proteins; Z79.01 Long term (current) use of anticoagulants; Z88.0 Allergy status to penicillin; Z66 Do not resuscitate; Z79.52 Long term (current) use of systemic steroids; Z79.899 Other long term (current) drug therapy; Z20.822 Contact with and (suspected) exposure to COVID-19
CPT/HCPCS: 0241U; 36415; 70450; 71045; 80048; 80053; 80076; 80202; 81003; 82607; 83605; 83690; 83735; 83880; 84100; 84132; 84443; 84484; 85025; 85610; 87040; 87086; 87088; 87205; 90471; 90714; 93005; 93306; 94640; 94760; 96372; 97110; 97112; 97162; 97530; 99285; J0692; J1644; J1650; J2930; J3370; J3411; J7030; J7040; J7050; J7512; U0003